=== PATIENT | male | born 1950 | race Caucasian/White ===

== ENCOUNTER 2018-11-15 13:45 | Inpatient (IN) | payer MEDICARE ==
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
--- NOTE | 2018-11-15 14:38 | CT ---
EXAMINATION TYPE: CT brain wo con DATE OF EXAM: 11/15/2018 HISTORY: Dizziness CT DLP: 1096.4 mGycm. Automated Exposure Control for Dose Reduction was Utilized. TECHNIQUE: CT scan of the head is performed without contrast. COMPARISON: None. FINDINGS: There is no acute intracranial hemorrhage or midline shift identified. There is diffuse v entricular and sulcal prominence consistent with diffuse age-related cerebral atrophy. There is low- attenuation in the periventricular white matter consistent with chronic small vessel ischemic change. Old lacunar infarct left internal capsule on axial image 30 is felt present The globes are intact a nd the visualized sinuses are clear. Vascular calcification distal internal carotid arteries is see n. IMPRESSION: No acute intracranial hemorrhage or midline shift. There is moderate diffuse age-relate d cerebral atrophy and mild to moderate chronic small vessel ischemic change with left-sided internal capsule lacunar infarct present..
[2018-11-15] MEDS ORDERED: CEFEPIME 2 GM in SODIUM CHLORIDE 0.9% 100 ML IVPB STA (14:45)
[2018-11-15] MEDS ORDERED: VANCOMYCIN IV PER PHARMACY 1 EACH MISC MISCELLANE PRN (14:45)
--- NOTE | 2018-11-15 14:45 | XR ---
EXAMINATION TYPE: XR chest 2V DATE OF EXAM: 11/15/2018 COMPARISON: NONE HISTORY: Fever and weakness. TECHNIQUE: Frontal and lateral views of the chest are obtained. FINDINGS: There is chronic parenchymal change without suspicious focal air space opacity, pleural ef fusion, or pneumothorax seen. The cardiac silhouette size is mildly enlarged with atherosclerotic ao rta surgical change right shoulder is partially imaged. IMPRESSION: Chronic changes and mild cardiomegaly without suspicious acute infiltrate identified.
[2018-11-15] MEDS ORDERED: VANCOMYCIN 1,500 MG in SODIUM CHLORIDE 0.9% 250 ML IVPB STA (14:48)
[2018-11-15 15:17] LABS: VBG PH 7.47 (7.31-7.41)
[2018-11-15 15:22] LABS: Basophils % (A) 1 %; Eosinophils % (A) 0 %; HCT 28.2 % (39.0-53.0); HGB 8.8 gm/dL (13.0-17.5); Lymphocytes # (A) 0.3 k/uL (1.0-4.8); Lymphocytes % (A) 4 %; MCH 29.7 pg (25.0-35.0); MCHC 31.4 g/dL (31.0-37.0); MCV 94.8 fL (80.0-100.0); Mean Platelet Volume 7.1; Monocytes # (A) 0.3 k/uL (0-1.0); Monocytes % (A) 4 %; Neutrophils # (A) 5.9 k/uL (1.3-7.7); Neutrophils % (A) 90 %; Platelet Count 143 k/uL (150-450); RBC 2.97 m/uL (4.30-5.90); RDW 15.9 % (11.5-15.5); WBC 6.5 k/uL (3.8-10.6)
[2018-11-15 15:24] LABS: INR 1.2 (<1.2); Prothrombin Time 12.2 sec (9.0-12.0)
[2018-11-15 15:26] LABS: Ammonia <9 umol/L (<30); Lactic Acid, Venous 1.2 mmol/L (0.7-2.0)
[2018-11-15 15:27] LABS: Calcium 8.9 mg/dL (8.4-10.2); Magnesium 1.8 mg/dL (1.6-2.3); Potassium 3.9 mmol/L (3.5-5.1)
[2018-11-15 17:22] LABS: Glucose,Whole Blood 169 mg/dL (75-99)
[2018-11-15 20:52] LABS: Glucose,Whole Blood 219 mg/dL (75-99)
[2018-11-15] MEDS: PANTOPRAZOLE 40 MG TABLET PO SCH (21:30)
[2018-11-15] MEDS: CARVEDILOL 12.5 MG TAB PO SCH (22:17)
[2018-11-15] MEDS: hydrALAZINE HCL 50 MG TAB PO SCH (22:17)
--- NOTE | 2018-11-15 22:35 | HP ---
HISTORY AND PHYSICAL CHIEF COMPLAINT: Fever and confusion. HISTORY OF PRESENT ILLNESS: There is no history available from this 68-year-old white male who came to the emergency room. He is confused. He is not known to me and his normal mental status is unknown. There is no one to give a history. In the emergency room, he had a fever with no obvious etiology. The urine has not been obtained. Chest x-ray was unremarkable. REVIEW OF SYSTEMS: Review of systems is unobtainable. Past medical history, family history, personal and social histories, etc. are all unknown. He is not known to be allergic to any medications. Apparently he is on atorvastatin, carvedilol, omeprazole, tamsulosin, amlodipine, and hydralazine. Laboratory studies revealed a low hemoglobin 8.8 with a white count of 6500. His BUN was 26, but creatinine is 5.08, blood sugar is 169. PHYSICAL EXAM: Temperature is 102.3 with pulse 82, respirations 24, blood pressure 164/70. In general, he appeared to be well developed, well nourished, well preserved, slightly dehydrated. He was awake and alert, but confused. He denied any chest or abdominal pain. He was not coughing. Head, ears, eyes, nose, mouth, and throat were normal. Neck veins were not distended. The chest was clear. Cardiac exam demonstrated sinus rhythm with no murmurs or extra sounds. Abdomen is soft and nontender. There are no masses or visceromegaly. Bowel sounds are heard. Extremities are normal and there is no cyanosis. Neurologically he is intact other than being confused. He is admitted to the hospital with diagnoses of: 1. Fever and mental status changes. 2. Probable history of heart disease and high blood pressure. 3. Another diagnosis would be renal failure. PLAN: 1. Bed rest. 2. IV fluids. 3. Appropriate cultures. 4. Consult with Nephrology and Infectious Disease. 5. Workup anemia. 6. Work on discharge planning. MMODL / IJN: [id number] /
[2018-11-16 01:30] LABS: Hemoglobin A1C 7.1 % (4.0-6.0)
[2018-11-16 05:24] LABS: Glucose,Whole Blood 208 mg/dL (75-99)
[2018-11-16] MEDS: CARVEDILOL 12.5 MG TAB PO SCH ×2 (06:53→16:33)
[2018-11-16] MEDS: PANTOPRAZOLE 40 MG TABLET PO SCH ×2 (06:53→16:33)
[2018-11-16] MEDS: INSULIN ASPART (NovoLOG) 100 UNIT/ML VIAL SQ SCH ×4 (06:53→21:45)
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
--- NOTE | 2018-11-16 09:02 | XR ---
EXAMINATION TYPE: XR chest 2V DATE OF EXAM: 11/16/2018 COMPARISON: NONE HISTORY: Shortness of breath TECHNIQUE: Frontal and lateral views of the chest are obtained. FINDINGS: Scattered senescent parenchymal changes noted. Hyperinflation compatible with COPD. Increasing patchy density at the right lower lobe may reflect developing pneumonia. Correlate clinica lly and progress studies are advised. Heart size is stable. Mediastinal structures are stable and grossly unremarkable. No evidence for hilar prominence. Degenerative changes dorsal spine. IMPRESSION: 1. Increasing patchy density at the right lower lobe may reflect developing pneumonia. Correlate clin ically and progress studies are advised.
[2018-11-16] MEDS: amLODIPine 10 MG TAB PO SCH (09:43)
[2018-11-16] MEDS: hydrALAZINE HCL 50 MG TAB PO SCH ×3 (09:43→21:44)
[2018-11-16] MEDS: TAMSULOSIN 0.4 MG CAP.ER.24H PO SCH (09:43)
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
[2018-11-16 11:47] LABS: Glucose,Whole Blood 154 mg/dL (75-99)
[2018-11-16] MEDS ORDERED: VANCOMYCIN 1,500 MG in SODIUM CHLORIDE 0.9% 250 ML IVPB ONE ×4 (12:00)
[2018-11-16 16:48] LABS: Glucose,Whole Blood 216 mg/dL (75-99)
[2018-11-16] MEDS: IOPAMIDOL-300 CONTRAST 30 ML VIAL (ORAL USE) PO PRN ×2 (17:56→18:42)
--- NOTE | 2018-11-16 17:57 | PN ---
PROGRESS NOTE DATE OF SERVICE: 11/16/2018. REASON FOR FOLLOWUP: Fever and Enterococcus bacteremia. INTERVAL HISTORY: The patient is currently afebrile. He seems to be more awake, alert. The patient currently denies having any headache. No chest pain. No shortness of breath. Very minimal cough. No nausea, vomiting. No abdominal pain. Has been complaining of some diarrhea. PHYSICAL EXAMINATION: Blood pressure 120/52 with a pulse of 84. Temperature 97.5. He is 99% on 2 L nasal cannula. General description is an elderly male up in the bed in no distress. Respiratory system: Unlabored breathing with decreased breath sounds at the bases. No wheeze. Heart S1, S2. Regular rate and rhythm. Abdomen soft, no tenderness. LABS: Hemoglobin 8.8, white count 6.5, BUN of 26, creatinine 5.08. Blood culture with Enterococcus. DIAGNOSTIC IMPRESSION AND PLAN: Patient admitted to the hospital with a fever, now with evidence of enterococcal bacteremia which could be either urinary or a gastrointestinal source in this patient who hardly makes any urine because of his underlying dialysis more likely abdominal source. We will obtain a CT of abdomen and pelvis with contrast. Okay with Nephrology. Vancomycin to continue while monitoring his clinical course. We will continue supportive care. MMODL / IJN: [id number] /
--- NOTE | 2018-11-16 21:14 | PN ---
PROGRESS NOTE CHIEF COMPLAINT: Mental status changes and fever. HISTORY OF PRESENT ILLNESS: This gentleman remains confused, but awake and alert. Workup continues. He is not complaining of any chest pain, abdominal pain, nausea, vomiting, etc. His temperature is down. His blood sugars have been elevated. His C-reactive protein is high. He is to be seen by Nephrology. PHYSICAL EXAM: Chest is clear and cardiac exam is normal. Abdomen is soft, nontender. IMPRESSION: 1. Mental status changes. 2. Delirium. 3. ? dementia. 4. Sepsis ? 5. End-stage renal disease. PLAN: Continue to monitor labs and particularly blood sugars. We are waiting his renal evaluation. MMODL / IJN: [id number] /
[2018-11-16 21:35] LABS: Glucose,Whole Blood 181 mg/dL (75-99)
--- NOTE | 2018-11-16 23:20 | CT ---
EXAMINATION TYPE: CT abdomen pelvis w con DATE OF EXAM: 11/16/2018 COMPARISON: None HISTORY: Fever and enterococus bacteremia. CT DLP: 1106.2 mGycm Automated exposure control for dose reduction was used. TECHNIQUE: Helical acquisition of images was performed from the lung bases through the pelvis. CONTRAST: Performed with Oral Contrast and with IV Contrast, patient injected with 80ml mL of Isovue 300. FINDINGS: LUNG BASES: No acute findings, but mild cardiomegaly and prominent coronary calcifications. LIVER/GB: No significant abnormality is appreciated. PANCREAS: No significant abnormality is seen. SPLEEN: No significant abnormality is seen. ADRENALS: No significant abnormality is seen. KIDNEYS: Bilateral 1 to 3 mm nonobstructing renal calcifications are noted. There is no hydronephrosi s or hydroureter. Left-sided renal cysts are seen. FREE AIR: No free air is visualized. RETROPERITONEAL ADENOPATHY: None visualized REPRODUCTIVE ORGANS: No significant abnormality is seen URINARY BLADDER: The urinary bladder is moderately distended and there is circumferential mural thic kening of the bladder. The prostate is prominently enlarged, measuring 7 cm mean diameter. PELVIC ADENOPATHY: None visualized. OSSEOUS STRUCTURES: No significant abnormality is seen. BOWEL: There is sequential mural thickening of the gastric antrum and duodenal bulb, correlate for g astritis/duodenitis. The small bowel is opacified with oral contrast and has normal appearance, as do es the colon. VASCULATURE: No acute findings. OTHER: Soft tissue nodule noted on axial image 40 just deep to the right rectus abdominis. A smaller nodule is noted on axial image 51, just deep to the right rectus abdominis. These 2 findings are like ly subcentimeter short axis lymph nodes. IMPRESSION: 1. Findings suggesting peptic ulcer disease. 2. Prostate hypertrophy with partial bladder outlet configuration. 3. Mild cardiomegaly with prominent coronary calcifications.
[2018-11-17 06:14] LABS: Glucose,Whole Blood 205 mg/dL (75-99)
[2018-11-17] MEDS: CARVEDILOL 12.5 MG TAB PO SCH ×2 (06:47→17:53)
[2018-11-17] MEDS: PANTOPRAZOLE 40 MG TABLET PO SCH ×2 (06:47→17:54)
[2018-11-17] MEDS: INSULIN ASPART (NovoLOG) 100 UNIT/ML VIAL SQ SCH ×4 (06:47→21:19)
[2018-11-17 06:57] LABS: Anisocytosis Slight; HCT 23.7 % (39.0-53.0); HGB 7.8 gm/dL (13.0-17.5); MCH 32.1 pg (25.0-35.0); MCHC 32.8 g/dL (31.0-37.0); MCV 97.9 fL (80.0-100.0); Macrocytosis Slight; Mean Platelet Volume 7.7; Platelet Count 130 k/uL (150-450); RBC 2.42 m/uL (4.30-5.90); RDW 16.5 % (11.5-15.5); WBC 3.6 k/uL (3.8-10.6)
[2018-11-17 07:18] LABS: Calcium 8.1 mg/dL (8.4-10.2)
[2018-11-17 07:24] LABS: Vancomycin,Random 22.2 ug/mL
--- NOTE | 2018-11-17 10:25 | P.PN ---
Subjective Progress Note Date: 11/17/18 Seen and examined for the follow-up of ESRD. Currently ongoing dialysis. Objective - Vital Signs Vital signs: Vital Signs Temp 98 F 11/17/18 04:00 Pulse 64 11/17/18 08:00 Resp 16 11/17/18 08:00 BP 112/51 11/17/18 08:00 Pulse Ox 91 L 11/17/18 08:00 Intake & Output 11/16/18 11/17/18 11/17/18 18:59 06:59 18:59 Intake Total 720 400 Balance 720 400 Weight 86.1 kg Intake: Oral 720 400 Other: Voiding Method Urinal Urinal Urinal Diaper Diaper Diaper # Voids 1 # Bowel Movements 1 - Exam No acute distress. S1-S2 heard Lungs clear Left upper arm aVF - Labs CBC & Chem 7: 11/17/18 05:54 11/17/18 05:54 Labs: Abnormal Lab Results - Last 24 Hours (Table) 11/15/18 11/16/18 11/16/18 Range/Units 14:50 08:41 11:45 WBC (3.8-10.6) k/uL RBC (4.30-5.90) m/uL Hgb (13.0-17.5) gm/dL Hct (39.0-53.0) % RDW (11.5-15.5) % Plt Count (150-450) k/uL Sodium (137-145) mmol/L Chloride (98-107) mmol/L BUN (9-20) mg/dL Creatinine (0.66-1.25) mg/dL Glucose (74-99) mg/dL POC Glucose (mg/dL) 154 H (75-99) mg/dL Calcium (8.4-10.2) mg/dL Procalcitonin 3.65 H (0.02-0.09) ng/mL Hep Bs Antibody Reactive H (Non-Reactive) 11/16/18 11/16/18 11/17/18 Range/Units 16:44 21:33 05:54 WBC (3.8-10.6) k/uL RBC (4.30-5.90) m/uL Hgb (13.0-17.5) gm/dL Hct (39.0-53.0) % RDW (11.5-15.5) % Plt Count (150-450) k/uL Sodium 131 L (137-145) mmol/L Chloride 92 L (98-107) mmol/L BUN 56 H (9-20) mg/dL Creatinine 8.77 H* (0.66-1.25) mg/dL Glucose 199 H (74-99) mg/dL POC Glucose (mg/dL) 216 H 181 H (75-99) mg/dL Calcium 8.1 L (8.4-10.2) mg/dL Procalcitonin (0.02-0.09) ng/mL Hep Bs Antibody (Non-Reactive) 11/17/18 11/17/18 Range/Units 05:54 06:13 WBC 3.6 L (3.8-10.6) k/uL RBC 2.42 L (4.30-5.90) m/uL Hgb 7.8 L (13.0-17.5) gm/dL Hct 23.7 L (39.0-53.0) % RDW 16.5 H (11.5-15.5) % Plt Count 130 L (150-450) k/uL Sodium (137-145) mmol/L Chloride (98-107) mmol/L BUN (9-20) mg/dL Creatinine (0.66-1.25) mg/dL Glucose (74-99) mg/dL POC Glucose (mg/dL) 205 H (75-99) mg/dL Calcium (8.4-10.2) mg/dL Procalcitonin (0.02-0.09) ng/mL Hep Bs Antibody (Non-Reactive) Microbiology - Last 24 Hours (Table) 11/15/18 18:39 Blood Culture - Preliminary Blood No Growth after 24 hours 11/15/18 14:50 Blood Culture Gram Stain - Preliminary Blood Blood Culture - Preliminary Group D Enterococcus Assessment and Plan Assessment: #1 encephalopathy secondary to enterococcus bacteremia #2 ESRD, TTS schedule #3 anemia with ESRD #4 hypertension with ESRD #5 metabolic bone disease with ESRD Plan: #1 hemodialysis today as per outpatient schedule and plan again on Monday. #2 antibiotics as per infectious disease #3 ESRD medications
[2018-11-17 12:00] LABS: Glucose,Whole Blood 201 mg/dL (75-99)
[2018-11-17] MEDS: amLODIPine 10 MG TAB PO SCH (12:19)
[2018-11-17] MEDS: hydrALAZINE HCL 50 MG TAB PO SCH ×3 (12:19→21:18)
[2018-11-17] MEDS: TAMSULOSIN 0.4 MG CAP.ER.24H PO SCH (12:20)
[2018-11-17 12:59] LABS: Eosinophils # (M) 0.25 k/uL (0-0.7); Lymphocytes # (M) 0.43 k/uL (1.0-4.8); Monocytes # (M) 0.32 k/uL (0-1.0); Neutrophils % (M) 72 %; Nucleated Red Blood Cells 0 /100 WBC (0-0); Total Cells Counted 100
--- NOTE | 2018-11-17 13:46 | PN ---
PROGRESS NOTE CHIEF COMPLAINT: Fever and sepsis. HISTORY OF PRESENT ILLNESS: This gentleman is being dialyzed. He has grown out enterococcus on a blood culture. REVIEW OF SYSTEMS: Review of systems is unobtainable at this time. PHYSICAL EXAMINATION: His hydration is slightly improved. Chest is clear. Cardiac exam is normal. Abdomen is soft, nontender. IMPRESSION: 1. Septicemia. 2. End-stage renal disease. PLAN: Continue with dialysis as well as antibiotic management. It is not clear where he will go after his hospitalization. MMODL / IJN: [id number] /
[2018-11-17 17:17] LABS: Glucose,Whole Blood 226 mg/dL (75-99)
[2018-11-17 20:55] LABS: Glucose,Whole Blood 195 mg/dL (75-99)
[2018-11-18 06:29] LABS: Glucose,Whole Blood 269 mg/dL (75-99)
[2018-11-18 06:45] LABS: Calcium 8.1 mg/dL (8.4-10.2)
[2018-11-18 06:50] LABS: Anisocytosis Slight; Basophils % (A) 1 %; Eosinophils # (A) 0.2 k/uL (0-0.7); Eosinophils % (A) 5 %; HCT 24.6 % (39.0-53.0); HGB 8.1 gm/dL (13.0-17.5); Lymphocytes # (A) 0.4 k/uL (1.0-4.8); Lymphocytes % (A) 9 %; MCV 96.9 fL (80.0-100.0); Macrocytosis Slight; Mean Platelet Volume 7.9; Monocytes # (A) 0.3 k/uL (0-1.0); Monocytes % (A) 8 %; Neutrophils # (A) 2.8 k/uL (1.3-7.7); Neutrophils % (A) 74 %; Platelet Count 137 k/uL (150-450); RBC 2.54 m/uL (4.30-5.90); RDW 16.7 % (11.5-15.5); Vancomycin,Random 17.6 ug/mL; WBC 3.9 k/uL (3.8-10.6)
[2018-11-18] MEDS: CARVEDILOL 12.5 MG TAB PO SCH ×2 (06:54→16:36)
[2018-11-18] MEDS: PANTOPRAZOLE 40 MG TABLET PO SCH ×2 (06:54→16:36)
[2018-11-18] MEDS: INSULIN ASPART (NovoLOG) 100 UNIT/ML VIAL SQ SCH ×4 (06:57→21:22)
[2018-11-18] MEDS: hydrALAZINE HCL 50 MG TAB PO SCH ×3 (08:24→21:22)
[2018-11-18] MEDS: TAMSULOSIN 0.4 MG CAP.ER.24H PO SCH (08:24)
[2018-11-18] MEDS: amLODIPine 10 MG TAB PO SCH (08:24)
--- NOTE | 2018-11-18 10:36 | P.PN ---
Subjective Progress Note Date: 11/18/18 Seen and examined for the follow-up of ESRD. Feels better today. No nausea vomiting diarrhea. Objective - Vital Signs Vital signs: Vital Signs Temp 97.6 F 11/18/18 08:00 Pulse 63 11/18/18 08:00 Resp 16 11/18/18 08:00 BP 124/80 11/18/18 08:00 Pulse Ox 98 11/18/18 08:00 Intake & Output 11/17/18 11/18/18 11/18/18 18:59 06:59 18:59 Intake Total 1220 400 480 Output Total 2400 Balance -1180 400 480 Weight 86.4 kg Intake: Oral 920 400 480 Hemodialysis 300 Output: Urine 100 Hemodialysis 2300 Other: Voiding Method Urinal Urinal Diaper Diaper # Voids 2 2 # Bowel Movements 1 - Exam No acute distress. S1-S2 heard Lungs clear Left upper arm aVF - Labs CBC & Chem 7: 11/18/18 05:55 11/18/18 05:55 Labs: Abnormal Lab Results - Last 24 Hours (Table) 11/17/18 11/17/18 11/17/18 Range/Units 05:54 11:58 16:47 RBC (4.30-5.90) m/uL Hgb (13.0-17.5) gm/dL Hct (39.0-53.0) % RDW (11.5-15.5) % Plt Count (150-450) k/uL Lymphocytes # (1.0-4.8) k/uL Lymphocytes # (Manual) 0.43 L (1.0-4.8) k/uL Sodium (137-145) mmol/L Chloride (98-107) mmol/L BUN (9-20) mg/dL Creatinine (0.66-1.25) mg/dL Glucose (74-99) mg/dL POC Glucose (mg/dL) 201 H 226 H (75-99) mg/dL Calcium (8.4-10.2) mg/dL 11/17/18 11/18/18 11/18/18 Range/Units 20:53 05:55 05:55 RBC 2.54 L (4.30-5.90) m/uL Hgb 8.1 L (13.0-17.5) gm/dL Hct 24.6 L (39.0-53.0) % RDW 16.7 H (11.5-15.5) % Plt Count 137 L (150-450) k/uL Lymphocytes # 0.4 L (1.0-4.8) k/uL Lymphocytes # (Manual) (1.0-4.8) k/uL Sodium 134 L (137-145) mmol/L Chloride 95 L (98-107) mmol/L BUN 43 H (9-20) mg/dL Creatinine 6.50 H (0.66-1.25) mg/dL Glucose 239 H (74-99) mg/dL POC Glucose (mg/dL) 195 H (75-99) mg/dL Calcium 8.1 L (8.4-10.2) mg/dL 11/18/18 Range/Units 06:27 RBC (4.30-5.90) m/uL Hgb (13.0-17.5) gm/dL Hct (39.0-53.0) % RDW (11.5-15.5) % Plt Count (150-450) k/uL Lymphocytes # (1.0-4.8) k/uL Lymphocytes # (Manual) (1.0-4.8) k/uL Sodium (137-145) mmol/L Chloride (98-107) mmol/L BUN (9-20) mg/dL Creatinine (0.66-1.25) mg/dL Glucose (74-99) mg/dL POC Glucose (mg/dL) 269 H (75-99) mg/dL Calcium (8.4-10.2) mg/dL Microbiology - Last 24 Hours (Table) 11/15/18 14:50 Blood Culture Gram Stain - Final Blood Blood Culture - Final Enterococcus faecalis 11/15/18 18:39 Blood Culture - Preliminary Blood No Growth after 48 hours 11/16/18 08:41 Blood Culture - Preliminary Blood No Growth after 24 hours Assessment and Plan Assessment: #1 encephalopathy secondary to enterococcus bacteremia #2 ESRD, TTS schedule #3 anemia with ESRD #4 hypertension with ESRD #5 metabolic bone disease with ESRD Plan: #1 hemodialysis today as per outpatient schedule and plan again on Monday. #2 antibiotics as per infectious disease #3 ESRD medications
[2018-11-18] MEDS ORDERED: DARBEPOETIN ALFA 40 MCG/0.4 ML SYRINGE SQ SCH (10:45)
[2018-11-18 11:46] LABS: Glucose,Whole Blood 241 mg/dL (75-99)
[2018-11-18] MEDS ORDERED: VANCOMYCIN 1,500 MG in SODIUM CHLORIDE 0.9% 250 ML IVPB ONE (12:00)
[2018-11-18] MEDS: SEVELAMER 800 MG TAB PO SCH ×2 (12:36→16:36)
[2018-11-18] MEDS: FOLIC ACID-VIT B COMPLEX-VIT C 1 CAP PO SCH (12:36)
--- NOTE | 2018-11-18 13:21 | PN ---
PROGRESS NOTE DATE OF SERVICE: 11/17/2018. REASON FOR FOLLOWUP: Enterococcus bacteremia. INTERVAL HISTORY: The patient is currently afebrile. Patient is breathing comfortably. The patient denies having any chest pain or any cough. No abdominal pain. No diarrhea. He is a dialysis patient, still makes a bit of urine. Denies any urinary symptoms. PHYSICAL EXAMINATION: Blood pressure is 121/62 with a pulse of 65, temperature 97.8. He is 93% on room air. General description is an elderly male lying in bed in no distress. RESPIRATORY SYSTEM: Unlabored breathing. Clear to auscultation. HEART: S1, S2. Regular rate and rhythm. ABDOMEN: Soft, no tenderness. EXTREMITIES: No edema of the feet. LABS: Hemoglobin is 7.2, white count 3.3, BUN of 56, creatinine is 8.77. Blood culture with Enterococcus faecalis. Blood culture repeat has been negative so far. DIAGNOSTIC IMPRESSION AND PLAN: Patient with Enterococcus faecalis bacteremia, source possibly urinary. The CT abdomen is negative for inflammatory changes. Blood culture repeat has been negative making it to be less likely source. Will continue with vancomycin while waiting for the sensitivity to finalize. Continue supportive care. MMODL / IJN: [id number] /
[2018-11-18 16:54] LABS: Glucose,Whole Blood 177 mg/dL (75-99)
--- NOTE | 2018-11-18 19:18 | PN ---
PROGRESS NOTE CHIEF COMPLAINT: Sepsis, end-stage renal disease and confusion. HISTORY OF PRESENT ILLNESS: This gentleman is doing better. He is more awake and oriented. He is complaining of a problem on his back. PHYSICAL EXAM: Chest is clear. The cardiac exam is normal. Abdomen is soft, nontender. On his back he has an infected sebaceous cyst, but it looks like it is receding. IMPRESSION: 1. End-stage renal disease. 2. Urinary tract infection. 3. Infected sebaceous cyst on the back. 4. Delirium. 5. Dementia. PLAN: He continues to improve. His sebaceous cyst will be left alone unless it becomes worse. MMODL / IJN: [id number] /
[2018-11-18 21:12] LABS: Glucose,Whole Blood 244 mg/dL (75-99)
--- NOTE | 2018-11-18 22:17 | PN ---
PROGRESS NOTE DATE OF SERVICE: 11/18/2018 REASON FOR FOLLOWUP: Enterococcus faecalis bacteremia, possibly ____ source. INTERVAL HISTORY: The patient is currently afebrile. Patient has been breathing comfortably. Denies having any chest pain. No shortness of breath or cough. No abdominal pain or any diarrhea. PHYSICAL EXAMINATION: Blood pressure 142/87 with a pulse of 69, temperature of 98, he is 95% on room air. GENERAL DESCRIPTION: An elderly male up in the bed in no distress. RESPIRATORY SYSTEM: Unlabored breathing. Decreased breath sounds at the base. HEART: S1, S2. Regular rate and rhythm. ABDOMEN: Soft, no tenderness. BACK: Evidence of sebaceous cyst but no abscess or cellulitis. LABS: Hemoglobin 8.1, white count 3.8. BUN of 43, creatinine 0.50. Blood culture repeat 11/15 and 11/16 have been negative. DIAGNOSTIC IMPRESSION AND PLAN: Patient with enterococcus faecalis bacteremia, possible urinary source as no evidence of any abnormality on the CT of abdomen and pelvis. Patient is currently covered with vancomycin, Pharmacy to dose which can be done through dialysis to finish 2-week course of therapy. The patient did have evidence of a sebaceous cyst on the back with no evidence of any abscess. May benefit from a surgical extraction of the same. Continue supportive care. MMODL / IJN: [id number] /
[2018-11-19 06:29] LABS: Glucose,Whole Blood 194 mg/dL (75-99)
[2018-11-19] MEDS: CARVEDILOL 12.5 MG TAB PO SCH ×2 (06:34→17:07)
[2018-11-19] MEDS: SEVELAMER 800 MG TAB PO SCH ×3 (06:34→17:07)
[2018-11-19] MEDS: PANTOPRAZOLE 40 MG TABLET PO SCH ×2 (06:34→17:08)
[2018-11-19] MEDS: INSULIN ASPART (NovoLOG) 100 UNIT/ML VIAL SQ SCH ×4 (06:34→21:12)
[2018-11-19 07:54] LABS: Anisocytosis Slight; Basophils % (A) 0 %; Eosinophils # (A) 0.2 k/uL (0-0.7); Eosinophils % (A) 4 %; HCT 26.4 % (39.0-53.0); HGB 8.5 gm/dL (13.0-17.5); Hypochromasia Slight; Lymphocytes # (A) 0.4 k/uL (1.0-4.8); Lymphocytes % (A) 9 %; MCH 31.9 pg (25.0-35.0); MCHC 32.2 g/dL (31.0-37.0); MCV 98.9 fL (80.0-100.0); Macrocytosis Slight; Mean Platelet Volume 7.7; Monocytes # (A) 0.2 k/uL (0-1.0); Monocytes % (A) 5 %; Neutrophils % (A) 80 %; Platelet Count 167 k/uL (150-450); RBC 2.67 m/uL (4.30-5.90); RDW 16.8 % (11.5-15.5)
[2018-11-19 08:14] LABS: Calcium 8.5 mg/dL (8.4-10.2); Potassium 4.3 mmol/L (3.5-5.1)
[2018-11-19] MEDS: FOLIC ACID-VIT B COMPLEX-VIT C 1 CAP PO SCH (08:35)
[2018-11-19] MEDS: amLODIPine 10 MG TAB PO SCH (08:35)
[2018-11-19] MEDS: hydrALAZINE HCL 50 MG TAB PO SCH ×3 (08:35→21:11)
[2018-11-19] MEDS: TAMSULOSIN 0.4 MG CAP.ER.24H PO SCH (08:35)
--- NOTE | 2018-11-19 10:03 | P.PN ---
Subjective Patient is seen in follow-up for end-stage renal disease. He is maintained on hemodialysis on a Monday schedule. Currently being treated for enterococcus bacteremia. No chest pain or shortness of breath. Tolerated hemodialysis well on Monday. Vital signs are stable. General: The patient appeared well nourished and normally developed. HEENT: Head exam is unremarkable. Neck is without jugular venous distension. LUNGS: Lungs are clear to auscultation and percussion. Breath sounds decreased. HEART: Rate and Rhythm are regular. First and second heart sounds normal. No murmurs, rubs or gallops. ABDOMEN: Abdominal exam reveals normal bowel sounds. Non-tender and non- distended. No evidence of peritonitis. EXTREMITITES: No clubbing, cyanosis, or edema. Objective - Vital Signs Vital signs: Vital Signs Temp 98.2 F 11/18/18 20:00 Pulse 65 11/19/18 04:00 Resp 17 11/19/18 04:00 BP 170/73 11/19/18 04:00 Pulse Ox 95 11/19/18 04:00 Intake & Output 11/18/18 11/19/18 11/19/18 18:59 06:59 18:59 Intake Total 1080 800 Balance 1080 800 Weight 87.77 kg Intake: Oral 1080 800 Other: Voiding Method Urinal Urinal Diaper Diaper # Voids 2 2 - Labs CBC & Chem 7: 11/19/18 07:16 11/19/18 07:16 Labs: Abnormal Lab Results - Last 24 Hours (Table) 11/18/18 11/18/18 11/18/18 Range/Units 11:43 16:46 21:11 RBC (4.30-5.90) m/uL Hgb (13.0-17.5) gm/dL Hct (39.0-53.0) % RDW (11.5-15.5) % Lymphocytes # (1.0-4.8) k/uL Sodium (137-145) mmol/L Chloride (98-107) mmol/L BUN (9-20) mg/dL Creatinine (0.66-1.25) mg/dL Glucose (74-99) mg/dL POC Glucose (mg/dL) 241 H 177 H 244 H (75-99) mg/dL 11/19/18 11/19/18 11/19/18 Range/Units 06:28 07:16 07:16 RBC 2.67 L (4.30-5.90) m/uL Hgb 8.5 L (13.0-17.5) gm/dL Hct 26.4 L (39.0-53.0) % RDW 16.8 H (11.5-15.5) % Lymphocytes # 0.4 L (1.0-4.8) k/uL Sodium 134 L (137-145) mmol/L Chloride 95 L (98-107) mmol/L BUN 54 H (9-20) mg/dL Creatinine 8.18 H* (0.66-1.25) mg/dL Glucose 170 H (74-99) mg/dL POC Glucose (mg/dL) 194 H (75-99) mg/dL Microbiology - Last 24 Hours (Table) 11/15/18 18:39 Blood Culture - Preliminary Blood No Growth after 72 hours 11/16/18 08:41 Blood Culture - Preliminary Blood No Growth after 48 hours Assessment and Plan Plan: Assessment: 1. End-stage renal disease maintained on hemodialysis on a Monday schedule via left upper extremity AV fistula. 2. Enterococcus bacteremia maintained on IV vancomycin. 3. Anemia of chronic kidney disease maintained on Aranesp. 4. Hypertension with chronic kidney disease. Stable. 5. Chronic kidney disease mineral bone disease maintained on Renvela. Plan: Hemodialysis tomorrow. Monitor vancomycin levels. Target level less than 20. Increase hydralazine to 100 mg 3 times daily.
[2018-11-19 11:56] LABS: Glucose,Whole Blood 260 mg/dL (75-99)
[2018-11-19 16:58] LABS: Glucose,Whole Blood 230 mg/dL (75-99)
--- NOTE | 2018-11-19 18:32 | PN ---
PROGRESS NOTE DATE OF SERVICE: 11/19/2018. REASON FOR FOLLOWUP: Enterococcus faecalis bacteremia. INTERVAL HISTORY: The patient is currently afebrile. The patient has been breathing comfortably. The patient denies having any chest pain or any cough. No nausea, vomiting, abdominal pain, or any diarrhea. PHYSICAL EXAMINATION: Blood pressure 139/66, pulse of 64. Temperature 97.6. He is 96% on room air. General description is an elderly male, up in the bed in no distress. Respiratory system: Unlabored breathing, clear to auscultation anteriorly. Heart S1, S2. Regular rate and rhythm. No loud murmur. ABDOMEN: Soft, no tenderness. Extremities: No edema of the feet. LABS: Hemoglobin 8.5, white count 5.0, BUN of 54, creatinine 8.18. Blood culture, repeat - 11/15 has been negative. DIAGNOSTIC IMPRESSION AND PLAN: Patient with Enterococcus faecalis bacteremia with followup blood cultures became negative very quickly, clinically doubt source. The patient does have a fistula for dialysis with no signs of any inflammation, possible urinary source. The patient is currently ordered vancomycin pharmacy to dose, can be done through dialysis for another 10 days to finish 2 weeks of therapy with close outpatient followup. Continue supportive care. MMODL / IJN: [id number] /
--- NOTE | 2018-11-19 19:02 | PN ---
PROGRESS NOTE CHIEF COMPLAINT: Sepsis, renal failure. HISTORY OF PRESENT ILLNESS: This gentleman is doing very well. He is much more awake and alert and oriented then he was prior to his dialysis. He has an abscess on the back which has been bothering him and he will have this looked at by Surgery. Review of systems is otherwise good. He is not having any nausea, shortness of breath, etc. PHYSICAL EXAM: Chest is clear. He does have an infected sebaceous cyst in the right posterior chest. Cardiac exam is normal. Abdomen is soft, nontender. IMPRESSION: 1. Sepsis. 2. End-stage renal disease. 3. Infected sebaceous cyst on the back. PLAN: 1. Continue with current program and management. 2. Consult with Surgery for the abscess. MMODL / IJN: [id number] /
[2018-11-19 20:52] LABS: Glucose,Whole Blood 275 mg/dL (75-99)
[2018-11-20] MEDS ORDERED: VANCOMYCIN 1,500 MG in SODIUM CHLORIDE 0.9% 250 ML IVPB ONE (06:00)
[2018-11-20 06:05] LABS: Glucose,Whole Blood 213 mg/dL (75-99)
[2018-11-20] MEDS: SEVELAMER 800 MG TAB PO SCH ×3 (06:30→17:33)
[2018-11-20] MEDS: CARVEDILOL 12.5 MG TAB PO SCH ×2 (06:30→17:33)
[2018-11-20] MEDS: PANTOPRAZOLE 40 MG TABLET PO SCH ×2 (06:30→17:33)
[2018-11-20] MEDS: INSULIN ASPART (NovoLOG) 100 UNIT/ML VIAL SQ SCH ×3 (06:31→17:34)
[2018-11-20 07:41] LABS: Calcium 8.4 mg/dL (8.4-10.2); Potassium 4.4 mmol/L (3.5-5.1)
[2018-11-20 07:44] LABS: Anisocytosis Slight; Basophils % (A) 1 %; Eosinophils # (A) 0.2 k/uL (0-0.7); Eosinophils % (A) 4 %; HCT 23.8 % (39.0-53.0); HGB 7.8 gm/dL (13.0-17.5); Lymphocytes # (A) 0.4 k/uL (1.0-4.8); Lymphocytes % (A) 8 %; MCH 31.7 pg (25.0-35.0); MCHC 32.6 g/dL (31.0-37.0); MCV 97.2 fL (80.0-100.0); Macrocytosis Slight; Mean Platelet Volume 7.5; Monocytes # (A) 0.3 k/uL (0-1.0); Monocytes % (A) 5 %; Neutrophils # (A) 4.3 k/uL (1.3-7.7); Neutrophils % (A) 82 %; Platelet Count 160 k/uL (150-450); RBC 2.45 m/uL (4.30-5.90); RDW 16.7 % (11.5-15.5); WBC 5.3 k/uL (3.8-10.6)
[2018-11-20 07:46] LABS: Vancomycin,Random 14.5 ug/mL
[2018-11-20 07:49] VITALS: TEMP 97.7
[2018-11-20] MEDS: hydrALAZINE HCL 50 MG TAB PO SCH ×2 (11:02→17:34)
[2018-11-20] MEDS: amLODIPine 10 MG TAB PO SCH (11:03)
[2018-11-20] MEDS: TAMSULOSIN 0.4 MG CAP.ER.24H PO SCH (11:03)
[2018-11-20] MEDS: FOLIC ACID-VIT B COMPLEX-VIT C 1 CAP PO SCH (11:03)
--- NOTE | 2018-11-20 11:25 | P.PN ---
Subjective Patient is seen in follow-up for end-stage renal disease. He is maintained on hemodialysis on a Monday schedule. Currently being treated for enterococcus bacteremia. No chest pain or shortness of breath. Tolerated hemodialysis well this morning. Eager to go home. Vital signs are stable. General: The patient appeared well nourished and normally developed. HEENT: Head exam is unremarkable. Neck is without jugular venous distension. LUNGS: Lungs are clear to auscultation and percussion. Breath sounds decreased. HEART: Rate and Rhythm are regular. First and second heart sounds normal. No murmurs, rubs or gallops. ABDOMEN: Abdominal exam reveals normal bowel sounds. Non-tender and non- distended. No evidence of peritonitis. EXTREMITITES: No clubbing, cyanosis, or edema. Objective - Vital Signs Vital signs: Vital Signs Temp 97.7 F 11/20/18 11:17 Pulse 67 11/20/18 11:17 Resp 18 11/20/18 11:17 BP 136/80 11/20/18 11:17 Pulse Ox 96 11/20/18 07:48 Intake & Output 11/19/18 11/20/18 11/20/18 18:59 06:59 18:59 Intake Total 1320 700 360 Output Total 2100 Balance 1320 700 -1740 Weight 90.3 kg Intake: Oral 1320 700 360 Output: Hemodialysis 2100 Other: Voiding Method Urinal Urinal Urinal Diaper Diaper Diaper # Voids 2 - Labs CBC & Chem 7: 11/20/18 06:45 11/20/18 06:45 Labs: Abnormal Lab Results - Last 24 Hours (Table) 11/19/18 11/19/18 11/19/18 Range/Units 11:55 16:55 20:49 RBC (4.30-5.90) m/uL Hgb (13.0-17.5) gm/dL Hct (39.0-53.0) % RDW (11.5-15.5) % Lymphocytes # (1.0-4.8) k/uL Sodium (137-145) mmol/L Chloride (98-107) mmol/L BUN (9-20) mg/dL Creatinine (0.66-1.25) mg/dL Glucose (74-99) mg/dL POC Glucose (mg/dL) 260 H 230 H 275 H (75-99) mg/dL 11/20/18 11/20/18 11/20/18 Range/Units 06:04 06:45 06:45 RBC 2.45 L (4.30-5.90) m/uL Hgb 7.8 L (13.0-17.5) gm/dL Hct 23.8 L (39.0-53.0) % RDW 16.7 H (11.5-15.5) % Lymphocytes # 0.4 L (1.0-4.8) k/uL Sodium 131 L (137-145) mmol/L Chloride 94 L (98-107) mmol/L BUN 66 H (9-20) mg/dL Creatinine 9.18 H* (0.66-1.25) mg/dL Glucose 173 H (74-99) mg/dL POC Glucose (mg/dL) 213 H (75-99) mg/dL Microbiology - Last 24 Hours (Table) 11/16/18 08:41 Blood Culture - Preliminary Blood No Growth after 96 hours 11/15/18 18:39 Blood Culture - Preliminary Blood No Growth after 96 hours Assessment and Plan Plan: Assessment: 1. End-stage renal disease maintained on hemodialysis on a Monday schedule via left upper extremity AV fistula. 2. Enterococcus bacteremia maintained on IV vancomycin. 3. Anemia of chronic kidney disease maintained on Aranesp. 4. Hypertension with chronic kidney disease. Stable. 5. Chronic kidney disease mineral bone disease maintained on Renvela. Plan: Hemodialysis on . Monitor vancomycin levels. Target level less than 20. Maintain current antihypertensives. Stable to be discharged home from nephrology standpoint.
[2018-11-20 12:09] LABS: Glucose,Whole Blood 191 mg/dL (75-99)
--- NOTE | 2018-11-20 13:24 | PN ---
PROGRESS NOTE DATE OF SERVICE: 11/20/2018 REASON FOR FOLLOWUP: Enterococcus faecalis bacteremia. INTERVAL HISTORY: The patient is currently afebrile. The patient has been breathing comfortably. Undergoing hemodialysis. The patient still on going home. No chest pain, shortness of breath or cough. No nausea, vomiting. No abdominal pain. No diarrhea. PHYSICAL EXAMINATION: On examination, blood pressure 136/80 with a pulse of 67, temperature 97.7. He is 96% on room air. General description is an elderly male up in the bed in no distress. RESPIRATORY SYSTEM: Unlabored breathing with decreased breath sounds at the bases. HEART: S1, S2. Regular rate and rhythm. murmur. ABDOMEN: Soft, no tenderness. EXTREMITIES: No edema of feet. LABS: Hemoglobin 7.8, white count 5.3, BUN of 66 with 9.18. Blood culture repeat negative. DIAGNOSTIC IMPRESSION AND PLAN: Patient with Enterococcus faecalis bacteremia, possible urinary or abdominal source. The patient did not have any evidence of persistent bacteremia to report source and the patient does have a graft on the left arm currently with no evidence of any cellulitis. The patient with murmur. Plan at this time to continue with the vancomycin, pharmacy to dose through the dialysis for another 10 days to finish 2-week course of therapy. Recommend repeat blood cultures to be has completed his IV antibiotics to make sure bacteremia. Continue with supportive care. LA / CONNIEN: [id number] /
[2018-11-20 16:18] VITALS: BP 168/78; PULSE 69; RESP 16
[2018-11-20 17:01] LABS: Glucose,Whole Blood 264 mg/dL (75-99)
--- NOTE | 2018-11-20 23:23 | DS ---
DISCHARGE SUMMARY CHIEF COMPLAINT: Sepsis, fever, urinary tract infection and end-stage renal disease. HISTORY OF PRESENT ILLNESS AND PHYSICAL EXAMINATION: Details of this man's history and physical can be found in the initial workup. LABORATORY STUDIES: While he was in the hospital he had laboratory studies, details of which can be found in the laboratory section of his chart. COURSE IN THE HOSPITAL: After admission he was placed on bedrest and started on intravenous fluids. He was seen by Nephrology and was started on dialysis. After that, he began to clinically improve. Antibiotics were also instituted for his urinary tract infection. He was doing well it was felt that he could be discharged on November 20. He will go home on light activity about the house and he will be seen in the office in several days. He will continue his dialysis as an outpatient. FINAL DIAGNOSES: 1. Urinary tract infection. 2. Septicemia. 3. Subcutaneous abscess on the back. 4. Mild dementia. 5. End-stage renal disease, on dialysis. OPERATIONS: None. CONSULTATION: Nephrology. He will be followed with home care and come into the office in the next day or two while he continues on dialysis. MMODL / IJN: [id number] /
== END 2018-11-20 19:30 | disposition home or self-care (01) | DRG 871 ==
LOC: EC 13:45 → 3SCARD 15:47
PROVIDERS: ADMIT Family Medicine; ATTEND Family Medicine
PROC: 5A1D70Z Performance of Urinary Filtration, Intermittent, Less than 6 Hours Per Day (ICD-10-PCS; principal; 2018-11-17)
DX: A41.81 Sepsis due to Enterococcus (principal); N18.6 End stage renal disease; G93.41 Metabolic encephalopathy; N39.0 Urinary tract infection, site not specified; I12.0 Hypertensive chronic kidney disease with stage 5 chronic kidney disease or end stage renal disease; N17.9 Acute kidney failure, unspecified; F03.90 Unspecified dementia, unspecified severity, without behavioral disturbance, psychotic disturbance, mood disturbance, and anxiety; L72.3 Sebaceous cyst; E11.22 Type 2 diabetes mellitus with diabetic chronic kidney disease; R65.20 Severe sepsis without septic shock; E88.89 Other specified metabolic disorders; D63.1 Anemia in chronic kidney disease; Z99.2 Dependence on renal dialysis; I25.2 Old myocardial infarction; Z79.899 Other long term (current) drug therapy; Z87.891 Personal history of nicotine dependence
CPT/HCPCS: 36415; 70450; 71046; 74177; 80048; 80202; 82140; 82803; 83036; 83605; 83735; 83880; 84145; 84484; 85025; 85379; 85610; 86140; 86706; 87040; 87077; 87186; 87340; 90935; 93005; 96365; 99285

== ENCOUNTER 2019-04-12 05:37 | Inpatient (IN) | payer MEDICARE ==
--- NOTE | 2019-04-12 06:08 | ED ---
Altered Mental Status HPI - General Chief Complaint: Altered Mental Status Stated Complaint: Altered Mental Time Seen by Provider: 04/12/19 05:50 Source: patient, EMS, RN notes reviewed Mode of arrival: EMS Limitations: no limitations - History of Present Illness Initial Comments: this is a 69-year-old male presents emergency department via EMS from home. Reportedly patient was not acting per his usual self per family. Patient himself has no complaints at this time. Patient states he is on his way to dialysis which he states he felt a little dizzy states that he did not feel safe driving site returned home. Patient denies chest pain, shortness breath, headache, blurred vision, focal weakness. Patient goes to dialysis on Monday and Monday, he states his renal failure from diabetes. He does admit that he makes a small amount urine. Patient admits that he had a fall on Monday which he hit his head on a curb, he was seen at [facility] had a CAT scan at that time. Patient denies any leg swelling, fever, chills, URI symptoms. - Related Data Home Medications Medication Instructions Recorded Confirmed Atorvastatin [Lipitor] 40 mg PO HS 11/15/18 11/15/18 Carvedilol 25 mg PO BID 11/15/18 11/15/18 Omeprazole 20 mg PO DAILY 11/15/18 11/17/18 Tamsulosin HCl [Flomax] 0.4 mg PO DAILY 11/15/18 11/15/18 amLODIPine [Norvasc] 10 mg PO DAILY 11/15/18 11/15/18 hydrALAZINE HCL 50 mg PO TID 11/15/18 11/15/18 Previous Rx's Medication Instructions Recorded Darbepoetin Zac [Aranesp] 40 mcg SQ Q7D #1 vial 11/20/18 Folic Acid-Vit B Complex-Vit C 1 each PO DAILY #30 cap 11/20/18 [Nephrocaps] Sevelamer [Renvela] 800 mg PO TID-W/MEALS #90 tab 11/20/18 Allergies Allergy/AdvReac Type Severity Reaction Status Date / Time No Known Allergies Allergy Verified 04/12/19 05:52 Review of Systems ROS Statement: Those systems with pertinent positive or pertinent negative responses have been documented in the HPI. ROS Other: All systems not noted in ROS Statement are negative. Past Medical History Past Medical History: Diabetes Mellitus, Hypertension, Memory Impairment, Myocardial Infarction (MS), Renal Disease Additional Past Medical History / Comment(s): PRINCE weinstein historian Last Myocardial Infarction Date:: unknown History of Any Multi-Drug Resistant Organisms: None Reported Additional Past Surgical History / Comment(s): PRINCE weinstein historian Smoking Status: Former smoker Past Alcohol Use History: Occasional Past Drug Use History: None Reported General Exam General appearance: alert, in no apparent distress Head exam: Present: atraumatic, normocephalic, normal inspection Eye exam: Present: normal appearance, PERRL, EOMI. Absent: scleral icterus, conjunctival injection, periorbital swelling ENT exam: Present: normal exam, normal oropharynx, mucous membranes moist, TM's normal bilaterally Neck exam: Present: normal inspection, full ROM. Absent: tenderness, m eningismus, lymphadenopathy Respiratory exam: Present: normal lung sounds bilaterally. Absent: respiratory distress, wheezes, rales, rhonchi, stridor Cardiovascular Exam: Present: regular rate, normal rhythm, normal heart sounds. Absent: systolic murmur, diastolic murmur, rubs, gallop, clicks GI/Abdominal exam: Present: soft, normal bowel sounds. Absent: distended, tenderness, guarding, rebound, rigid Neurological exam: Present: alert, oriented X3, CN II-XII intact, reflexes normal. Absent: motor sensory deficit Skin exam: Present: warm, dry, intact, normal color. Absent: rash Course Vital Signs 04/12/19 04/12/19 05:47 08:18 Temperature 97.1 F L Pulse Rate 77 70 Respiratory 18 18 Rate Blood Pressure 197/93 171/82 O2 Sat by Pulse 97 95 Oximetry Medical Decision Making - Medical Decision Making I did give further information from family and records from [facility]. Patient has new diagnosis of seizures. Family states that he never left his house this morning that they found him in his car confused. Family states that he's been having these bouts of confusion and which he has ended up in other areas including [place]. They're concerned about him driving. Family does concerned about his intermittent confusion. Patient also missed dialysis today and will need dialysis. Case discussed with some physician who accepts admi ssion consult to nephrology and neurology - Lab Data Result diagrams: 04/12/19 06:50 04/12/19 06:50 Lab Results 04/12/19 04/12/19 Range/Units 06:50 06:50 WBC 6.1 (3.8-10.6) k/uL RBC 3.22 L (4.30-5.90) m/uL Hgb 11.0 L (13.0-17.5) gm/dL Hct 31.3 L (39.0-53.0) % MCV 97.3 (80.0-100.0) fL MCH 34.2 (25.0-35.0) pg MCHC 35.1 (31.0-37.0) g/dL RDW 15.0 (11.5-15.5) % Plt Count 168 (150-450) k/uL Neutrophils % 78 % Lymphocytes % 8 % Monocytes % 8 % Eosinophils % 4 % Basophils % 1 % Neutrophils # 4.7 (1.3-7.7) k/uL Lymphocytes # 0.5 L (1.0-4.8) k/uL Monocytes # 0.5 (0-1.0) k/uL Eosinophils # 0.2 (0-0.7) k/uL Basophils # 0.1 (0-0.2) k/uL Sodium 136 L (137-145) mmol/L Potassium 5.6 H (3.5-5.1) mmol/L Chloride 90 L (98-107) mmol/L Carbon Dioxide 31 H (22-30) mmol/L Anion Gap 15 mmol/L BUN 73 H (9-20) mg/dL Creatinine 10.63 H* (0.66-1.25) mg/dL Est GFR (CKD-EPI)AfAm 5 (>60 ml/min/1.73 sqM) Est GFR (CKD-EPI)NonAf 4 (>60 ml/min/1.73 sqM) Glucose 156 H (74-99) mg/dL Calcium 8.8 (8.4-10.2) mg/dL Total Bilirubin 1.1 (0.2-1.3) mg/dL AST 26 (17-59) U/L ALT 12 (4-49) U/L Alkaline Phosphatase 68 (38-126) U/L Total Protein 7.1 (6.3-8.2) g/dL Albumin 4.3 (3.5-5.0) g/dL Disposition Clinical Impression: Altered mental status, Seizure, Renal failure Disposition: ADMITTED IP TO THIS HOSP Condition: Fair Referrals: Nonstaff,Physician [Primary Care Provider] - 1-2 days
[2019-04-12 07:03] LABS: Basophils # (A) 0.1 k/uL (0-0.2); Basophils % (A) 1 %; Eosinophils # (A) 0.2 k/uL (0-0.7); Eosinophils % (A) 4 %; HCT 31.3 % (39.0-53.0); Lymphocytes # (A) 0.5 k/uL (1.0-4.8); Lymphocytes % (A) 8 %; MCH 34.2 pg (25.0-35.0); MCHC 35.1 g/dL (31.0-37.0); MCV 97.3 fL (80.0-100.0); Mean Platelet Volume 8.2; Monocytes # (A) 0.5 k/uL (0-1.0); Monocytes % (A) 8 %; Neutrophils # (A) 4.7 k/uL (1.3-7.7); Neutrophils % (A) 78 %; Platelet Count 168 k/uL (150-450); RBC 3.22 m/uL (4.30-5.90); WBC 6.1 k/uL (3.8-10.6)
[2019-04-12 07:10] LABS: Albumin 4.3 g/dL (3.5-5.0); Calcium 8.8 mg/dL (8.4-10.2); Potassium 5.6 mmol/L (3.5-5.1); Total Bilirubin 1.1 mg/dL (0.2-1.3); Total Protein 7.1 g/dL (6.3-8.2)
--- NOTE | 2019-04-12 07:49 | CT ---
EXAMINATION TYPE: CT brain wo con DATE OF EXAM: 04/12/2019 COMPARISON: 11/15/2018 HISTORY: Altered mental status CT DLP: 1091.[address] of the brain was performed. The ventricles, basal cisterns and sulci overlying the cerebral convexities demonstrate mild enlargem ent. There is no evidence for intracranial hemorrhage or sulcal effacement. There is decreased attenuation about the periventricular white matter and deep white matter of both c erebral hemispheres, compatible with chronic small vessel ischemia. Differential diagnosis does inclu de demyelination. No mass effects are seen.No midline shift. Osseous calvarium is intact. If symptoms persist consider MRI. IMPRESSION: 1. Age related atrophic and chronic small vessel ischemic change without acute intracranial process s een at this time.
--- NOTE | 2019-04-12 08:09 | XR ---
EXAMINATION TYPE: XR chest 2V DATE OF EXAM: 04/12/2019 COMPARISON: NONE HISTORY: Shortness of breath TECHNIQUE: Frontal and lateral views of the chest are obtained. FINDINGS: Scattered senescent parenchymal changes noted. Hyperinflation compatible with COPD. No evidence for infiltrate. No evidence for atelectasis. Heart size is stable. Mediastinal structures are stable and grossly unremarkable. No evidence for hilar prominence. Degenerative changes dorsal spine. IMPRESSION: 1. No evidence for acute pulmonary disease.
[2019-04-12] MEDS ORDERED: ONDANSETRON 4 MG/2 ML VIAL IVP PRN (08:37)
[2019-04-12] MEDS ORDERED: NALOXONE 0.4 MG/ML 1 ML VIAL IV PRN ×2 (08:37→15:24)
[2019-04-12 11:51] LABS: Glucose,Whole Blood 116 mg/dL (75-99)
--- NOTE | 2019-04-12 13:37 | P.NPCON ---
History of Present Illness - Reason for Consult end stage renal disease - History of Present Illness Reason for consultation: End-stage liver disease History of present illness: Patient is a 69-year-old male seen in consultation for end-stage renal disease. He is maintained on hemodialysis on Monday schedule. Patient presented to the hospital due to altered mental status. Patient was driving to the dialysis unit and did not feel well and therefore drove back home. Per family, he was not acting himself. Currently the patient is resting in bed. He is alert and oriented. He denies chest pain or shortness of breath. He does respond to verbal commands. He denies any vision changes. No syncopal episodes. Hemodynamically he is stable. Patient is afebrile. He does not have an elevated white count. Patient did sustain a fall at home on Monday. He was evaluated at [facility] at that time. Patient's CAT scan this admission revealed no acute changes. Chest x-ray was not suggestive of fluid overload. Last hemodialysis was on Monday. Vital signs are stable. General: The patient appeared well nourished and normally developed. HEENT: Head exam is unremarkable. Neck is without jugular venous distension. LUNGS: Lungs are clear to auscultation and percussion. Breath sounds decreased. HEART: Rate and Rhythm are regular. First and second heart sounds normal. No murmurs, rubs or gallops. ABDOMEN: Abdominal exam reveals normal bowel sounds. Non-tender and non- distended. No evidence of peritonitis. EXTREMITITES: No clubbing, cyanosis, or edema. Past Medical History Past Medical History: Diabetes Mellitus, Hypertension, Memory Impairment, Myocardial Infarction (MT), Renal Disease Additional Past Medical History / Comment(s): PRINCE weinstein historian Last Myocardial Infarction Date:: unknown History of Any Multi-Drug Resistant Organisms: None Reported Additional Past Surgical History / Comment(s): PRINCE weinstein historian Smoking Status: Former smoker Past Alcohol Use History: Occasional Past Drug Use History: None Reported Medications and Allergies Home Medications Medication Instructions Recorded Confirmed Type Carvedilol 25 mg PO BID 11/15/18 04/12/19 History Omeprazole 20 mg PO DAILY 11/15/18 04/12/19 History Tamsulosin HCl [Flomax] 0.4 mg PO DAILY 11/15/18 04/12/19 History hydrALAZINE HCL [Apresoline] 100 mg PO TID 04/12/19 04/12/19 History Allergies Allergy/AdvReac Type Severity Reaction Status Date / Time No Known Allergies Allergy Verified 04/12/19 09:23 Physical Exam Vitals: Vital Signs Temp Pulse Pulse Resp BP BP Pulse Ox 04/12/19 10:03 71 17 149/67 94 L 04/12/19 09:45 80 17 118/81 97 04/12/19 08:46 69 18 152/76 96 04/12/19 08:18 70 18 171/82 95 04/12/19 05:47 97.1 F L 77 18 197/93 97 Intake and Output 04/11/19 04/12/19 04/12/19 22:59 06:59 14:59 Other: Weight 84.822 kg Results - Lab Results Most recent lab results Calcium 8.8 mg/dL (8.4-10.2) 04/12/19 06:50 04/12/19 06:50 04/12/19 06:50 Assessment and Plan Plan: Assessment: 1. End-stage renal disease maintained on hemodialysis on Monday schedule. Patient has an AV fistula. 2. Hypertension with chronic kidney disease. 3. Altered mental status. Unclear etiology. Brain CT negative. No evidence of infection. 4. Hyperkalemia secondary to chronic kidney disease. 5. Anemia of chronic kidney disease. Hemoglobin at goal. Plan: Hemodialysis today with goal 2 L ultrafiltration. Resume home antihypertensives. Check UA and urine culture. Check 1 set of blood culture. Thank you for the consultation. I will continue to follow the patient with you during his hospital stay.
--- NOTE | 2019-04-12 15:29 | P.HPIM ---
History of Present Illness H&P Date: 04/12/19 Chief Complaint: Altered mental status 69-year-old male seen in consultation for end-stage renal disease. He is maintained on hemodialysis on Monday schedule. Patient presented to the hospital due to altered mental status. Patient was driving to the dialysis unit and did not feel well and therefore drove back home. Per family, he was not acting himself. Currently the patient is resting in bed. He is alert and oriented. He denies chest pain or shortness of breath. He does respond to verbal commands. He denies any vision changes. No syncopal ep isodes. Hemodynamically he is stable. Patient is afebrile. He does not have an elevated white count. Patient did sustain a fall at home on Monday. He was evaluated at [facility] at that time. Patient's CAT scan this admission revealed no acute changes. Chest x-ray was not suggestive of fluid overload. Last hemodialysis was on Monday. Review of Systems Complete review of system performed, pertinent positives per HPI, otherwise negative Past Medical History Past Medical History: Diabetes Mellitus, Hypertension, Memory Impairment, Myocardial Infarction (MA), Renal Disease Additional Past Medical History / Comment(s): PRINCE pt poor historian Last Myocardial Infarction Date:: unknown History of Any Multi-Drug Resistant Organisms: None Reported Past Surgical History: Appendectomy, Heart Catheterization With Stent, Hernia Repair, Tonsillectomy Additional Past Surgical History / Comment(s): PRINCE pt poor historian Past Anesthesia/Blood Transfusion Reactions: No Reported Reaction Date of Last Stent Placement:: 2015 Smoking Status: Former smoker - Past Family History Mother Family Medical History: Diabetes Mellitus, Hyperlipidemia, Hypertension Father Family Medical History: Hyperlipidemia, Hypertension Medications and Allergies Home Medications Medication Instructions Recorded Confirmed Type Carvedilol 25 mg PO BID 11/15/18 04/12/19 History Omeprazole 20 mg PO DAILY 11/15/18 04/12/19 History Tamsulosin HCl [Flomax] 0.4 mg PO DAILY 11/15/18 04/12/19 History hydrALAZINE HCL [Apresoline] 100 mg PO TID 04/12/19 04/12/19 History Allergies Allergy/AdvReac Type Severity Reaction Status Date / Time No Known Allergies Allergy Verified 04/12/19 09:23 Physical Exam Vitals: Vital Signs Temp Pulse Pulse Resp BP BP Pulse Ox 04/12/19 10:03 71 17 149/67 94 L 04/12/19 09:45 80 17 118/81 97 04/12/19 08:46 69 18 152/76 96 04/12/19 08:18 70 18 171/82 95 04/12/19 05:47 97.1 F L 77 18 197/93 97 Intake and Output 04/11/19 04/12/19 04/12/19 22:59 06:59 14:59 Other: Weight 84.822 kg 84.822 kg Constitutional: No acute distress, conversant, pleasant Eyes:Anicteric sclerae, moist conjunctiva, no lid-lag, PERRLA, ENMT: Oropharynx clear, no erythema, exudates Neck: Supple, FROM, no masses, or JVD, No carotid bruits, No thyromegaly Lungs: Clear to auscultation, Clear to percussion, Normal respiratory effort, no accessory muscle use Cardiovascular: Heart regular in rate and rhythm, No murmurs, gallops, or rubs, No peripheral edema Abdominal: Soft, Nontender, no guarding, rebound or rigidity, Normoactive bowel sounds, No hepatomegaly, No splenomegaly, No palpable mass Skin: Normal temperature, tone, texture, turgor, no induration, No subcutaneous nodules, No rash, lesions, No ulcers Extremities: No digital cyanosis, No clubbing, Pedal pulses intact and symmetrical, Radial pulses intact and symmetrical, No calf tenderness Psychiatric: Alert and oriented to person, place and time, appropriate affect, intact judgement Neuro: Muscles Strength 5/5 in all 4 extremities, Sensation to light touch grossly present throughout, Cranial nerves II-XII grossly intact, no focal s ensory deficits Results CBC & Chem 7: 04/12/19 06:50 04/12/19 06:50 Labs: Abnormal Lab Results - Last 24 Hours (Table) 04/12/19 04/12/19 04/12/19 Range/Units 06:50 06:50 11:50 RBC 3.22 L (4.30-5.90) m/uL Hgb 11.0 L (13.0-17.5) gm/dL Hct 31.3 L (39.0-53.0) % Lymphocytes # 0.5 L (1.0-4.8) k/uL Sodium 136 L (137-145) mmol/L Potassium 5.6 H (3.5-5.1) mmol/L Chloride 90 L (98-107) mmol/L Carbon Dioxide 31 H (22-30) mmol/L BUN 73 H (9-20) mg/dL Creatinine 10.63 H* (0.66-1.25) mg/dL Glucose 156 H (74-99) mg/dL POC Glucose (mg/dL) 116 H (75-99) mg/dL Thrombosis Risk Factor Assmnt - Choose All That Apply Each Factor Represents 1 point: Medical pt on bed rest, Obesity (BMI >25) Other Risk Factors: No Each Risk Factor Represents 2 Points: Age 61-74 years Other congenital or acquired thrombophilia - If yes, enter type in comment: No Thrombosis Risk Factor Assessment Total Risk Factor Score: 4 Thrombosis Risk Factor Assessment Level: Moderate Risk Assessment and Plan Plan: Acute metabolic encephalopathy with hyperkalemia, rule out infection versus seizure Neurology consulted, EEG recommended Neuro checks every 4hrs Check UA and urine culture. Check 1 set of blood culture. ESRD: Nephrology consult is, already seen patient Hemodialysis today Essential hypertension Resume home antihypertensives. Anticipated length of stay: less than 2 midnights. Admitted to observation. Anticipated discharge: Home
[2019-04-12 16:42] LABS: Glucose,Whole Blood 169 mg/dL (75-99)
[2019-04-12] MEDS: hydrALAZINE HCL 50 MG TAB PO SCH ×2 (16:51→22:44)
[2019-04-12] MEDS: TAMSULOSIN 0.4 MG CAP.ER.24H PO SCH (16:51)
[2019-04-12] MEDS: PANTOPRAZOLE 40 MG TABLET PO SCH (16:51)
[2019-04-12] MEDS: CARVEDILOL 12.5 MG TAB PO SCH (16:52)
--- NOTE | 2019-04-12 18:02 | EEG ---
ELECTROENCEPHALOGRAM REPORT DATE OF PROCEDURE: 04/12/2019 ELECTROENCEPHALOGRAM (EEG) REPORT: TECHNIQUE: A routine 18-channel EEG was performed with video using the 10/20 international electrode placement system. HISTORY: Patient "not acting like himself." Patient felt dizzy. Patient recently diagnosed with seizures? CURRENT MEDICATIONS: Zofran. STUDY DURATION: 24 minutes. FINDINGS: Please note that the patient was drowsy or asleep for the majority of this recording. BACKGROUND: The background activity consisted of 6 to 7 Hz rhythmic waveforms symmetrically distributed over both posterior quadrants. ACTIVATION: Hyperventilation: Not performed. Photic stimulation: No driving seen. Sleep: Stages I and II sleep noted. ABNORMALITIES: Intermittent diffuse 4 to 6 Hz polymorphic theta range slowing was seen. One channel of this EEG was dedicated to EKG, it demonstrated a sinus rhythm. IMPRESSION: Abnormal EEG. The diffuse theta range slowing mentioned above is not epileptiform in nature. In combination with the slow background, these findings indicate moderate diffuse cerebral dysfunction as may be seen in a toxometabolic encephalopathy. Please note that some of these findings may be state-related (drowsy/sleep) . No seizures were recorded. No epileptiform activity was present. MMODL / IJN: [id number] / [facility] CENTERArturo
--- NOTE | 2019-04-12 18:50 | P.CNNES ---
History of Present Illness Consult date: 04/12/19 Reason for Consult: AMs Chief complaint: AMS History of Present Illness: HISTORY OF PRESENT ILLNESS: Thank you for allowing me to evaluate Mr. Amari aY. Mr. Ya is a 69 year-old man with PMhx of diabetes, HTN, memory impairment, AR, renal failure on dialysis (M,W,F), presented to [facility] for altered mental status. No family at bedside. Per ED note, family had said that he was not acting "himself." Patient was on his way to dialysis when he felt dizzy and didn't feel safe to drive himself home. At this time, patient with no complaints. He denies ever having similar episodes. Denies any headache, nausea, vomiting, recent sickness, double/blurry vision, weakness, numbness or tingling. Patient feels like he is his normal self. PAST MEDICAL HISTORY: diabetes, HTN, memory impairment, AR, renal failure on dialysis (M,W,F) PAST SURGICAL HISTORY: Unknown HOME MEDICATIONS: Atorvastatin, carvedilol, omeprazole, tamsulosin, amlodipine, hydralazine, darbepoetin, folic acid, sevelamer ALLERGIES: NKDA SOCIAL HISTORY: Former smoker. REVIEW OF SYSTEMS: The 14 systems are reviewed and no additional points are identified compared to the review of systems documented history and physical PHYSICAL EXAMINATION: VITAL SIGNS: T 97.1 HR 77 RR 18 BP 197/93 O2 sat 97% on RA GEN.: NAD, slightly irritable but cooperative HEENT: NCAT, sclera without icterus NECK: Supple SKIN AND EXTREMITIES: Warm to touch, no edema NEURO: MENTAL STATUS: Patient alert and oriented to self, place, time. Able to name the current president. Speech fluent, able to name and repeat, following all commands readily. No right and left disorientation, neglect. CRANIAL NERVES II THROUGH XII: II: Pupils are equal and reactive to light symmetrically. No afferent pupillary defect. Visual dickerson are intact. III, IV, : No ptosis. Extraocular movements full. No nystagmus. V: Facial sensation intact from V1-3. VII. No clear facial asymmetry. VIII: Hearing intact to finger rub bilaterally. IX, X: Symmetric palate elevation. XI: Shoulder shrug intact. XII: Tongue midline without fasciculation or atrophy. MOTOR: Normal bulk/tone. No pronator drift or tremor. Strength is 5/5 throughout all 4 extremities. SENSORY: Intact to light touch pinprick in all 4 extremities. REFLEXES: 2+ throughout. Toes are downgoing. COORDINATION: Finger to nose intact. No dysmetria. GAIT: deferred DIAGNOSTIC TESTING: LABORATORY: WBC 6.1 Hgb 11.0 Platelet 168 Na 136 K 5.6 Cl 90 CO2 31 BUN 73 Cr 10.63 Glucose 156 AST 26 ALT 12 AlkPhos 68 IMAGING: CT Head w/o contrast 04/12/19: Age-related atrophic and chronic small vessel ischemic change without acute intracranial process seen at this time. 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 ASSESSMENT/RECOMMENDATIONS: 69 year-old man with PMhx of diabetes, HTN, memory impairment, AR, renal failure on dialysis (M,W,F), presented to [facility] for altered mental status. Patient at this time no focal neuro deficit. Patient noted to have elevated BUN and Cr, and upon review of his previous labs, Cr had been as low as 5.08 in 10/2018. Routine EEG with no epileptiform or seizure activity. Patient likely had metabolic encephalopathy in the setting of uremia. 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 Would benefit from getting MRI brain w/o contrast. Patient should also get an outpatient neurologist follow-up within 2-3 weeks of discharge. Please feel free to contact via [employer] over the weekend with additional questions or concerns. 1. Past Medical History Past Medical History: Diabetes Mellitus, Hypertension, Memory Impairment, Myocardial Infarction (AR), Renal Disease Additional Past Medical History / Comment(s): PRINCE pt poor historian Last Myocardial Infarction Date:: unknown History of Any Multi-Drug Resistant Organisms: None Reported Additional Past Surgical History / Comment(s): PRINCE pt poor historian Smoking Status: Former smoker Past Alcohol Use History: Occasional Past Drug Use History: None Reported - Past Family History Mother Family Medical History: Diabetes Mellitus, Hyperlipidemia, Hypertension Father Family Medical History: Hyperlipidemia, Hypertension Medications and Allergies Home Medications Medication Instructions Recorded Confirmed Type Carvedilol 25 mg PO BID 11/15/18 04/12/19 History Omeprazole 20 mg PO DAILY 11/15/18 04/12/19 History Tamsulosin HCl [Flomax] 0.4 mg PO DAILY 11/15/18 04/12/19 History hydrALAZINE HCL [Apresoline] 100 mg PO TID 04/12/19 04/12/19 History Allergies Allergy/AdvReac Type Severity Reaction Status Date / Time No Known Allergies Allergy Verified 04/12/19 09:23 Physical Examination - Vital Signs Vital Signs: Vital Signs Temp Pulse Pulse Resp BP BP Pulse Ox 04/12/19 10:03 71 17 149/67 94 L 04/12/19 09:45 80 17 118/81 97 04/12/19 08:46 69 18 152/76 96 04/12/19 08:18 70 18 171/82 95 04/12/19 05:47 97.1 F L 77 18 197/93 97 Intake and Output 04/11/19 04/12/19 04/12/19 22:59 06:59 14:59 Other: Weight 84.822 kg Results - Laboratory Findings CBC and BMP: 04/12/19 06:50 04/12/19 06:50 Abnormal Lab Findings: Abnormal Labs 04/12/19 04/12/19 04/12/19 06:50 06:50 11:50 RBC 3.22 L Hgb 11.0 L Hct 31.3 L Lymphocytes # 0.5 L Sodium 136 L Potassium 5.6 H Chloride 90 L Carbon Dioxide 31 H BUN 73 H Creatinine 10.63 H* Glucose 156 H POC Glucose (mg/dL) 116 H
[2019-04-13 08:29] LABS: Basophils # (A) 0.1 k/uL (0-0.2); Basophils % (A) 1 %; Eosinophils # (A) 0.2 k/uL (0-0.7); Eosinophils % (A) 4 %; HCT 32.8 % (39.0-53.0); HGB 10.9 gm/dL (13.0-17.5); Lymphocytes # (A) 0.4 k/uL (1.0-4.8); Lymphocytes % (A) 7 %; MCH 33.4 pg (25.0-35.0); MCHC 33.3 g/dL (31.0-37.0); MCV 100.3 fL (80.0-100.0); Macrocytosis Slight; Mean Platelet Volume 8.4; Monocytes # (A) 0.4 k/uL (0-1.0); Monocytes % (A) 7 %; Neutrophils # (A) 4.7 k/uL (1.3-7.7); Neutrophils % (A) 79 %; Platelet Count 146 k/uL (150-450); RBC 3.27 m/uL (4.30-5.90); RDW 15.1 % (11.5-15.5)
[2019-04-13 08:33] LABS: Albumin 4.4 g/dL (3.5-5.0); Calcium 9.1 mg/dL (8.4-10.2); Magnesium 2.2 mg/dL (1.6-2.3); Phosphorus 7.4 mg/dL (2.5-4.5); Potassium 5.6 mmol/L (3.5-5.1)
--- NOTE | 2019-04-13 09:10 | MR ---
EXAMINATION TYPE: MR brain wo con DATE OF EXAM: 04/13/2019 9:03 AM. COMPARISON: NONE. HISTORY: Frontal abrasion. Technique: Multiplanar, multiecho imaging of the brain was obtained without intravenous contrast. FINDINGS: The study is markedly the graded by motion artifact. This is in spite of a fast brain prot ocol. Structures are unremarkable. There is a normal craniocervical junction. Echoplanar diffusion imaging shows increased signal in the left temporal lobe as well as the frontal lobes bilaterally. I believe this is artifactual. There are normal vascular flow voids. The orbits are unremarkable. There is no evidence of a CP angle mass lesion. There is both punctate and confluent periventricular white matter disease likely on the basis of historian research assistant davey ischemia and small vessel disease. There is no mass effect, midline shift or intracranial blood i dentified. IMPRESSION: 1. SUBOPTIMAL EXAMINATION. 2. NO ACUTE INTRACRANIAL ABNORMALITY. 3. BOTH PUNCTATE AND CONFLUENT PERIVENTRICULAR WHITE MATTER CHANGE COMPATIBLE WITH A COMBINATION OF S MALL VESSEL DISEASE AND CHRONIC WHITE MATTER ISCHEMIC CHANGE.
[2019-04-13] MEDS: TAMSULOSIN 0.4 MG CAP.ER.24H PO SCH (10:13)
[2019-04-13] MEDS: PANTOPRAZOLE 40 MG TABLET PO SCH (10:13)
[2019-04-13] MEDS: CARVEDILOL 12.5 MG TAB PO SCH ×2 (10:13→17:23)
[2019-04-13] MEDS: hydrALAZINE HCL 50 MG TAB PO SCH ×3 (10:14→20:27)
--- NOTE | 2019-04-13 12:13 | P.PN ---
Subjective Progress Note Date: 04/13/19 Principal diagnosis: This is a 69-year-old male with ESRD on dialysis Monday. He was admitted with change in mental status. Workup has shown a normal CT MRI shows chronic changes. Metabolic workup was negative. He does not Mrs. dialysis therefore this is unlikely to be uremic His back to normal. He wants to eat. Is able to answer all questions He does have history of diabetes mellitus hypertension and memory impairment and history of ASHD. Objective - Vital Signs Vital signs: Vital Signs Temp 97.9 F 04/13/19 07:26 Pulse 61 04/13/19 07:26 Resp 15 04/13/19 07:26 BP 129/57 04/13/19 07:26 Pulse Ox 93 L 04/13/19 07:26 Intake & Output 04/12/19 04/13/19 04/13/19 18:59 06:59 18:59 Intake Total 340 Output Total 1999 Balance -1660 Weight 84.822 kg Intake: Oral 340 Output: Hemodialysis 1999 On examination awake alert oriented to time place percent. He was able to respond all the questions that were answered HEENT exam no JVP neck is supple no facial asymmetry Lungs clear to auscultation good air entry bilaterally Heart sounds are unremarkable for any murmur rub Abdomen soft nontender Extremity exam was no edema Neurologically awake alert oriented no focal motor deficit - Labs CBC & Chem 7: 04/13/19 07:01 04/13/19 07:01 Labs: Abnormal Lab Results - Last 24 Hours (Table) 04/12/19 04/13/19 04/13/19 Range/Units 16:40 07:01 07:01 RBC 3.27 L (4.30-5.90) m/uL Hgb 10.9 L (13.0-17.5) gm/dL Hct 32.8 L (39.0-53.0) % MCV 100.3 H (80.0-100.0) fL Plt Count 146 L (150-450) k/uL Lymphocytes # 0.4 L (1.0-4.8) k/uL Sodium 136 L (137-145) mmol/L Potassium 5.6 H (3.5-5.1) mmol/L Chloride 95 L (98-107) mmol/L BUN 57 H (9-20) mg/dL Creatinine 8.96 H* (0.66-1.25) mg/dL Glucose 144 H (74-99) mg/dL POC Glucose (mg/dL) 169 H (75-99) mg/dL Phosphorus 7.4 H (2.5-4.5) mg/dL Assessment and Plan Assessment: Impression 1. ESRD on dialysis Monday. Stable 2. Admitted with change in mental status resolved. Possible TIA. Workup has shown normal MRI except for chronic changes and metabolic workup was unremarkable. 3. Diabetes mellitus, and no evidence of hypoglycemic event 4. Blood pressure controlled, vital signs unremarkable. 5. Anemia ESRD. Hemoglobin at target 10.9 6. Slightly high phosphorus 7.4 Recommendation 1. Neurology is evaluating the case 2. Patient can be discharged from a nephrological perspective 3. He is here we'll monitor his labs appropriate for ESRD
[2019-04-13] MEDS ORDERED: SODIUM POLYSTYRENE SULFONATE 15 GM/60 ML BOTTLE PO STA (12:16)
--- NOTE | 2019-04-13 12:26 | P.PN ---
Subjective Progress Note Date: 04/13/19 Principal diagnosis: Change in ms No overnight issues, urine still not collected. Patent sleeping this am, when waked he states he has no complaints. Objective - Vital Signs Vital signs: Vital Signs Temp 97.9 F 04/13/19 07:26 Pulse 61 04/13/19 07:26 Resp 15 04/13/19 07:26 BP 129/57 04/13/19 07:26 Pulse Ox 93 L 04/13/19 07:26 Intake & Output 04/12/19 04/13/19 04/13/19 18:59 06:59 18:59 Intake Total 340 Output Total 1999 Balance -1660 Weight 84.822 kg Intake: Oral 340 Output: Hemodialysis 1999 - Exam Constitutional: No acute distress, conversant, pleasant Eyes:Anicteric sclerae, moist conjunctiva, no lid-lag, PERRLA, ENMT: Oropharynx clear, no erythema, exudates Neck: Supple, FROM, no masses, or JVD, No carotid bruits, No thyromegaly Lungs: Clear to auscultation, Clear to percussion, Normal respiratory effort, no accessory muscle use Cardiovascular: Heart regular in rate and rhythm, No murmurs, gallops, or rubs, No peripheral edema Abdominal: Soft, Nontender, no guarding, rebound or rigidity, Normoactive bowel sounds, No hepatomegaly, No splenomegaly, No palpable mass Skin: Normal temperature, tone, texture, turgor, no induration, No subcutaneous nodules, No rash, lesions, No ulcers Extremities: No digital cyanosis, No clubbing, Pedal pulses intact and symmetrical, Radial pulses intact and symmetrical, No calf tenderness Psychiatric: Alert and oriented to person, place and time, appropriate affect, intact judgement Neuro: Muscles Strength 5/5 in all 4 extremities, Sensation to light touch grossly present throughout, Cranial nerves II-XII grossly intact, no focal sensory deficits - Labs CBC & Chem 7: 04/13/19 07:01 04/13/19 07:01 Labs: Abnormal Lab Results - Last 24 Hours (Table) 04/12/19 04/13/19 04/13/19 Range/Units 16:40 07:01 07:01 RBC 3.27 L (4.30-5.90) m/uL Hgb 10.9 L (13.0-17.5) gm/dL Hct 32.8 L (39.0-53.0) % MCV 100.3 H (80.0-100.0) fL Plt Count 146 L (150-450) k/uL Lymphocytes # 0.4 L (1.0-4.8) k/uL Sodium 136 L (137-145) mmol/L Potassium 5.6 H (3.5-5.1) mmol/L Chloride 95 L (98-107) mmol/L BUN 57 H (9-20) mg/dL Creatinine 8.96 H* (0.66-1.25) mg/dL Glucose 144 H (74-99) mg/dL POC Glucose (mg/dL) 169 H (75-99) mg/dL Phosphorus 7.4 H (2.5-4.5) mg/dL Assessment and Plan Plan: Acute metabolic encephalopathy with hyperkalemia, rule out infection versus seizure Neurology consulted, EEG showed generalized slowing consistent with metabolic encephalopathy, MRI brain done as well and that was negative for acute intracranial process. Check UA and urine culture. Discussed with nursing. Check 1 set of blood culture. Pending. ESRD: Nephrology consult is, already seen patient Hemodialysis Monday, Monday and Monday. Essential hypertension Resume home antihypertensives. Anticipated discharge: Home tomorrow.
[2019-04-14] MEDS: PANTOPRAZOLE 40 MG TABLET PO SCH (09:41)
[2019-04-14] MEDS: TAMSULOSIN 0.4 MG CAP.ER.24H PO SCH (09:41)
[2019-04-14] MEDS: hydrALAZINE HCL 50 MG TAB PO SCH ×3 (10:03→20:37)
[2019-04-14] MEDS: CARVEDILOL 12.5 MG TAB PO SCH ×2 (10:03→17:19)
--- NOTE | 2019-04-14 11:34 | P.PN ---
Subjective Progress Note Date: 04/14/19 Principal diagnosis: This is a 69-year-old male with ESRD on dialysis Monday. He was admitted with change in mental status. Workup has shown a normal CT MRI shows chronic changes. Metabolic workup was negative. He does not Miss his dialysis therefore this is unlikely to be uremic His back to normal. He wants to eat. Is able to answer all questions. This morning he was dialyzed and 2 L ultrafiltrate without any problems tolerated very well He does have history of diabetes mellitus hypertension and memory impairment and history of ASHD. Objective - Vital Signs Vital signs: Vital Signs Temp 97.7 F 04/14/19 07:00 Pulse 64 04/14/19 07:00 Resp 16 04/14/19 07:00 BP 143/64 04/14/19 07:00 Pulse Ox 96 04/14/19 07:00 Intake & Output 04/13/19 04/14/19 04/14/19 18:59 06:59 18:59 Intake Total 150 296 Balance 150 296 Intake: Oral 150 296 Other: # Voids 1 # Bowel Movements 1 Examination awake alert oriented. HEENT exam no JVP neck is supple no facial asymmetry Lungs clear to auscultation good air entry bilaterally Heart sounds are unremarkable no murmur rub Abdomen soft nontender Extremity exam was no edema Neurologically awake alert oriented - Labs CBC & Chem 7: 04/13/19 07:01 04/13/19 07:01 Labs: Microbiology - Last 24 Hours (Table) 04/12/19 15:38 Blood Culture - Preliminary Blood No Growth after 24 hours Assessment and Plan Assessment: Impression 1. ESRD on dialysis Monday. Stable. His dialysis today Monday because off holiday schedule and tomorrow is off in the outpatient unit 2. Admitted with change in mental status resolved. Possible TIA. Workup has shown normal MRI except for chronic changes and metabolic workup was unremarkable. he recovered his mental status back to baseline 3. Diabetes mellitus, and no evidence of hypoglycemic event 4. Blood pressure controlled, vital signs unremarkable. 5. Anemia ESRD. Hemoglobin at target 10.9 6. Slightly high phosphorus 7.4 Recommendation 1. Neurology is evaluating the case 2. Patient can be discharged from a nephrological perspective 3. He is here we'll monitor his labs appropriate for ESRD
--- NOTE | 2019-04-14 12:45 | P.DS ---
Providers Date of admission: 04/12/19 08:52 Expected date of discharge: 04/14/19 Attending physician: Julissa Tomlin MD Consults: 04/12/19 08:37 Consult Physician Stat Consulting Provider: Cortney Bowser Consult Reason/Comments: possible seizure, altered mental status Do you want consulting provider notified?: Yes Consult Physician Stat Consulting Provider: Doreen Hadley Consult Reason/Comments: dialysis Do you want consulting provider notified?: Yes Primary care physician: Physician Nonstaff Hospital Course: 69-year-old male with hx of HTN, ESRD, hx of recent enterococcus bacteremia about 6 months ago presented to the hospital due to altered mental status. Patient was driving to the dialysis unit and did not feel well and therefore drove back home. Per family, he was not acting himself. When he was seen in the ER he was alert and oriented. He denied chest pain or shortness of breath. He denied any vision changes, focal weakness or numbness. No syncopal episodes. no fevers or chills. No cough. No nausea, vomiting or diarrhea. Patient did sustain a fall at home on Monday. Evaluation in the emergency department was essentially negative. Hemodynamica lly he was stable. Labs were all benign and computed tomography scan of the head. Chest x-ray was not suggestive of fluid overload. Last hemodialysis was on Monday. Patient was dialyzed on the day of admission. He was seen by nephrology service. Subsequently he was admitted to the hospital for neuro checks and neurology consultation. He was seen by neurology who recommended EEG and MRI of the brain, both were negative for acute events. EEG showed generalized slowing consistent with a metabolic encephalopathy. He also had blood cx that was negative. During the hospitalization patient did not have any recurrent episodes of confusion. Today his mental status is essentially normal, he will be discharged home in a stable condition. Patient Condition at Discharge: Fair Plan - Discharge Summary Discharge Rx Participant: No New Discharge Prescriptions: Continue Tamsulosin HCl [Flomax] 0.4 mg PO DAILY Omeprazole 20 mg PO DAILY Carvedilol 25 mg PO BID hydrALAZINE HCL [Apresoline] 100 mg PO TID Discharge Medication List Carvedilol 25 mg PO BID 11/15/18 [History] Omeprazole 20 mg PO DAILY 11/15/18 [History] Tamsulosin HCl [Flomax] 0.4 mg PO DAILY 11/15/18 [History] hydrALAZINE HCL [Apresoline] 100 mg PO TID 04/12/19 [History] Follow up Appointment(s)/Referral(s): Nonstaff,Physician [Primary Care Provider] - 1-2 days
[2019-04-14 15:20] LABS: Calcium 8.8 mg/dL (8.4-10.2)
[2019-04-14 15:24] LABS: Potassium 5.3 mmol/L (3.5-5.1)
--- NOTE | 2019-04-14 16:19 | P.PN ---
Subjective Progress Note Date: 04/14/19 Principal diagnosis: Change in ms Patient was about to be discharged, RN called patient's [id number] Franci and she refused to come and become up, Franci stated that patient has been sleeping in his car which patient did not mention. Objective - Vital Signs Vital signs: Vital Signs Temp 97.9 F 04/14/19 12:04 Pulse 69 04/14/19 12:04 Resp 16 04/14/19 07:00 BP 148/88 04/14/19 12:04 Pulse Ox 96 04/14/19 07:00 Intake & Output 04/13/19 04/14/19 04/14/19 18:59 06:59 18:59 Intake Total 150 592 Output Total 1999 Balance 150 -1408 Intake: Oral 150 592 Output: Hemodialysis 1999 Other: # Voids 1 # Bowel Movements 1 - Exam Constitutional: No acute distress, conversant, pleasant Eyes:Anicteric sclerae, moist conjunctiva, no lid-lag, PERRLA, ENMT: Oropharynx clear, no erythema, exudates Neck: Supple, FROM, no masses, or JVD, No carotid bruits, No thyromegaly Lungs: Clear to auscultation, Clear to percussion, Normal respiratory effort, no accessory muscle use Cardiovascular: Heart regular in rate and rhythm, No murmurs, gallops, or rubs, No peripheral edema Abdominal: Soft, Nontender, no guarding, rebound or rigidity, Normoactive bowel sounds, No hepatomegaly, No splenomegaly, No palpable mass Skin: Normal temperature, tone, texture, turgor, no induration, No subcutaneous nodules, No rash, lesions, No ulcers Extremities: No digital cyanosis, No clubbing, Pedal pulses intact and symmetric al, Radial pulses intact and symmetrical, No calf tenderness Psychiatric: Alert and oriented to person, place and time, appropriate affect, intact judgement Neuro: Muscles Strength 5/5 in all 4 extremities, Sensation to light touch grossly present throughout, Cranial nerves II-XII grossly intact, no focal sensory deficits - Labs CBC & Chem 7: 04/13/19 07:01 04/14/19 14:58 Labs: Abnormal Lab Results - Last 24 Hours (Table) 04/14/19 Range/Units 14:58 Sodium 132 L (137-145) mmol/L Potassium 5.3 H (3.5-5.1) mmol/L Chloride 96 L (98-107) mmol/L Carbon Dioxide 20 L (22-30) mmol/L BUN 45 H (9-20) mg/dL Creatinine 6.72 H (0.66-1.25) mg/dL Glucose 190 H (74-99) mg/dL Microbiology - Last 24 Hours (Table) 04/12/19 15:38 Blood Culture - Preliminary Blood No Growth after 24 hours Assessment and Plan Plan: Acute metabolic encephalopathy with hyperkalemia Neurology consulted, EEG showed generalized slowing consistent with metabolic encephalopathy, MRI brain done as well and that was negative for acute intracranial process. Blood culture negative Patient's social environment likely contributing to this, we'll contact Adult Protective Services for evaluation ESRD: Nephrology consult is, already seen patient Hemodialysis Monday, Monday and Monday. Essential hypertension Resume home antihypertensives. Disposition: We'll need care management evaluation to find out the best place for him to go. We'll hold discharge for now.
[2019-04-15] MEDS: hydrALAZINE HCL 50 MG TAB PO SCH ×3 (08:47→21:30)
[2019-04-15] MEDS: TAMSULOSIN 0.4 MG CAP.ER.24H PO SCH (08:47)
[2019-04-15] MEDS: CARVEDILOL 12.5 MG TAB PO SCH ×2 (08:48→18:32)
[2019-04-15] MEDS: PANTOPRAZOLE 40 MG TABLET PO SCH (08:49)
--- NOTE | 2019-04-15 14:22 | PN ---
PROGRESS NOTE Patient is seen for followup for end-stage renal disease. Patient was admitted to the hospital with altered mentation. He is status post dialysis. Patient is stable for discharge from Nephrology standpoint. His mentation has improved. The MRI was did not show any new findings. PHYSICAL EXAMINATION: On examination today, blood pressure was 154/69, heart rate 63, patient is afebrile. Examination of the heart S1, S2. Examination of the lungs, bilateral breath sounds are heard. Abdomen is soft, non-tender. Examination of the lower extremities shows no significant edema. LABS: Show sodium 132 from yesterday, potassium 5.3, creatinine was 6.7 yesterday. ASSESSMENT: 1. End-stage renal disease, on hemodialysis on a Monday, Monday, Monday schedule as outpatient, status post dialysis. Patient will resume his outpatient schedule as outpatient on Monday Because of the holidays. 2. Altered mentation, now resolved. MRI was negative for any acute findings. 3. Anemia of chronic disease, stable. PLAN: Okay to discharge patient, followup as outpatient for hemodialysis. MMODL / IJN: [id number] /
--- NOTE | 2019-04-15 14:24 | P.PN ---
Subjective Progress Note Date: 04/15/19 patient seen and examined at bedside, in good spirits had no complaints today. The patient was expecting to go home. No significant shortness of breath this morning denies chest pain. patient unable to go home today secondary to placement apparently does not have enough room for him at home would like to seek senior care placement. No acute events overnight Objective - Vital Signs Vital signs: Vital Signs Temp 98.4 F 04/15/19 07:00 Pulse 63 04/15/19 07:00 Resp 16 04/15/19 07:00 BP 154/69 04/15/19 07:00 Pulse Ox 97 04/15/19 07:00 Intake & Output 04/14/19 04/15/19 04/15/19 18:59 06:59 18:59 Intake Total 1628 350 296 Output Total 1999 Balance -372 350 296 Intake: Oral 1628 350 296 Output: Hemodialysis 1999 - Exam Constitutional: No acute distress, conversant, pleasant Eyes: Anicteric sclerae, moist conjunctiva, no lid-lag, PERRLA ENMT: NC/AT,Oropharynx clear, no erythema, exudates Neck:Supple, FROM, no masses, or JVD, No carotid bruits; No thyromegaly Lungs: Clear to auscultation, Clear to percussion, Normal respiratory effort, no accessory muscle use Cardiovascular: Heart regular in rate and rhythm, No murmurs, gallops, or rubs no peripheral edema Abdominal: Soft Nontender, nom distended, no guarding, no rebound or rigidity, Normoactive bowel sounds No hepatomegaly, No splenomegaly, No palpable mass No abdominal wall hernia noted Skin: Normal temperature, tone, texture, turgor, No induration No subcutaneous nodules, No rash, lesions, No ulcers Extremities:No digital cyanosis No clubbing, Pedal pulses intact and symmetrical Radial pulses intact and symmetrical Normal gait and station, No calf tenderness Psychiatric: Alert and awake, oriented at times Neuro: Muscles Strength 5/5 in all 4 extremities, Sensation to light touch grossly present throughout, Cranial nerves II-XII grossly intact. No focal sensory deficits - Labs CBC & Chem 7: 04/13/19 07:01 04/14/19 14:58 Labs: Abnormal Lab Results - Last 24 Hours (Table) 04/14/19 Range/Units 14:58 Sodium 132 L (137-145) mmol/L Potassium 5.3 H (3.5-5.1) mmol/L Chloride 96 L (98-107) mmol/L Carbon Dioxide 20 L (22-30) mmol/L BUN 45 H (9-20) mg/dL Creatinine 6.72 H (0.66-1.25) mg/dL Glucose 190 H (74-99) mg/dL Microbiology - Last 24 Hours (Table) 04/12/19 15:38 Blood Culture - Preliminary Blood No Growth after 48 hours Assessment and Plan Assessment: Acute metabolic encephalopathy with hyperkalemia Neurology consulted, EEG showed generalized slowing consistent with metabolic encephalopathy, MRI brain done as well and that was negative for acute intracranial process. Blood culture negative Patient's social environment likely contributing to this, we'll contact Adult Protective Services for evaluation ESRD: Nephrology consult is, already seen patient Hemodialysis Monday, Monday and Monday. Essential hypertension Resume home antihypertensives. Disposition: We'll need care management evaluation to find out the best place for him to go. We'll hold discharge for now.
--- NOTE | 2019-04-15 19:37 | P.PN ---
Subjective Progress Note Date: 04/15/19 Patient was seen by Dr. Bowser in consultation on 04/12/2019. Patient offers no new complaints at this time. Patient has been discharged, but patient's family does not want him to go back to his home, or their home. Patient lives in a trailer, which does not have heat. During cold nights, patient sleeps in his car. Patient denies any focal symptoms. Objective - Vital Signs Vital signs: Vital Signs Temp 97.9 F 04/15/19 15:00 Pulse 61 04/15/19 15:00 Resp 16 04/15/19 16:00 BP 153/67 04/15/19 15:00 Pulse Ox 98 04/15/19 15:00 Intake & Output 04/15/19 04/15/19 04/16/19 06:59 18:59 06:59 Intake Total 350 1418 Balance 350 1418 Intake: Oral 350 1418 Other: # Voids 1 - Exam Patient's mental status appears intact. Patient states it's March 1220, but then said was 2019. Patient states he is in [facility] in [place]. He knows name of the current president. Patient's speech and language functions are normal. Cranial nerves are normal. Visual dickerson are full, face is symmetric and tongue protrudes the midline. Pupils are round and reacting. There is no obvious carotid bruit. Muscle strength is normal in the arms and le gs. No ataxia. Sensations equal. - Labs CBC & Chem 7: 04/13/19 07:01 04/14/19 14:58 Labs: Microbiology - Last 24 Hours (Table) 04/12/19 15:38 Blood Culture - Preliminary Blood No Growth after 72 hours Assessment and Plan Assessment: * Altered mental status, likely related to mild metabolic encephalopathy, related to uremia. * End-stage renal disease on hemodialysis Plan: * No other neurological workup indicated. Patient had normal MRI of the brain, only with some small vessel disease. * EEG reported moderate encephalopathy. No epileptiform activity seen. * Patient awaiting transfer to rehab. * Neurologically clear. We will sign off.
[2019-04-16] MEDS: CARVEDILOL 12.5 MG TAB PO SCH ×2 (08:38→16:32)
[2019-04-16] MEDS: PANTOPRAZOLE 40 MG TABLET PO SCH (08:39)
[2019-04-16] MEDS: hydrALAZINE HCL 50 MG TAB PO SCH ×3 (08:39→21:37)
[2019-04-16] MEDS: TAMSULOSIN 0.4 MG CAP.ER.24H PO SCH (08:39)
--- NOTE | 2019-04-16 14:58 | P.PN ---
Subjective Progress Note Date: 04/16/19 Principal diagnosis: Seen for f/u for ESRD. Due for HD today. Objective - Vital Signs Vital signs: Vital Signs Temp 97.4 F L 04/16/19 14:32 Pulse 69 04/16/19 14:32 Resp 12 04/16/19 14:32 BP 138/65 04/16/19 14:32 Pulse Ox 95 04/16/19 14:32 Intake & Output 04/15/19 04/16/19 04/16/19 18:59 06:59 18:59 Intake Total 1418 290 Balance 1418 290 Intake: Oral 1418 290 Other: # Voids 1 1 0 - Constitutional General appearance: Present: average body habitus, cooperative, no acute distress - EENT Eyes: Present: PERRLA, normal appearance - Cardiovascular Rhythm: regular Heart sounds: normal: S1 (no edema), S2 - Gastrointestinal General gastrointestinal: Present: soft - Neurologic Neurologic Comment(s): [employer] grossly intact - Labs CBC & Chem 7: 04/13/19 07:01 04/14/19 14:58 Labs: Microbiology - Last 24 Hours (Table) 04/12/19 15:38 Blood Culture - Preliminary Blood No Growth after 72 hours Assessment and Plan Assessment: 1. ESRD, on HD MWF at [facility] HD unit. For HD today 2. Mental status changes, improved, being followed by Neurology. 3. CKD mineral bone disorder. 4. Social issues, seeking placement at [facility]. PLAN HD today.
--- NOTE | 2019-04-16 15:34 | P.PN ---
Subjective Progress Note Date: 04/16/19 patient doing well, in good spirits. Has no complaints today, no acute events overnight. Scheduled for hemodialysis today Objective - Vital Signs Vital signs: Vital Signs Temp 97.4 F L 04/16/19 14:32 Pulse 69 04/16/19 14:32 Resp 12 04/16/19 14:32 BP 138/65 04/16/19 14:32 Pulse Ox 95 04/16/19 14:32 Intake & Output 04/15/19 04/16/19 04/16/19 18:59 06:59 18:59 Intake Total 1418 290 Balance 1418 290 Intake: Oral 1418 290 Other: # Voids 1 1 0 - Exam Constitutional: No acute distress, conversant, pleasant Eyes: Anicteric sclerae, moist conjunctiva, no lid-lag, PERRLA ENMT: NC/AT,Oropharynx clear, no erythema, exudates Neck:Supple, FROM, no masses, or JVD, No carotid bruits; No thyromegaly Lungs: Clear to auscultation, Clear to percussion, Normal respiratory effort, no accessory muscle use Cardiovascular: Heart regular in rate and rhythm, No murmurs, gallops, or rubs no peripheral edema Abdominal: Soft Nontender, nom distended, no guarding, no rebound or rigidity, Normoactive bowel sounds No hepatomegaly, No splenomegaly, No palpable mass No abdominal wall hernia noted Skin: Normal temperature, tone, texture, turgor, No induration No subcutaneous nodules, No rash, lesions, No ulcers Extremities:No digital cyanosis No clubbing, Pedal pulses intact and symmetrical Radial pulses intact and symmetrical Normal gait and station, No calf tenderness Psychiatric: Alert and awake, oriented at times Neuro: Muscles Strength 5/5 in all 4 extremities, Sensation to light touch grossly present throughout, Cranial nerves II-XII grossly intact. No focal sensory deficits - Labs CBC & Chem 7: 04/13/19 07:01 04/14/19 14:58 Labs: Microbiology - Last 24 Hours (Table) 04/12/19 15:38 Blood Culture - Preliminary Blood No Growth after 72 hours Assessment and Plan Assessment: Acute metabolic encephalopathy with hyperkalemia * secondary to uremic encephalopathy from missed hemodialysis Neurology consulted, EEG showed generalized slowing consistent with metabolic encephalopathy, MRI brain done as well and that was negative for acute intracranial process. Blood culture negative Patient's social environment likely contributing to this, we'll contact Adult Protective Services for evaluation ESRD: Nephrology consult is, already seen patient Hemodialysis Monday, Monday and Monday. Essential hypertension Resume home antihypertensives. Disposition: patient awaiting placementapproval
[2019-04-17] MEDS: TAMSULOSIN 0.4 MG CAP.ER.24H PO SCH (07:32)
[2019-04-17] MEDS: CARVEDILOL 12.5 MG TAB PO SCH ×2 (07:32→17:03)
[2019-04-17] MEDS: hydrALAZINE HCL 50 MG TAB PO SCH ×3 (07:32→21:08)
[2019-04-17] MEDS: PANTOPRAZOLE 40 MG TABLET PO SCH (07:32)
--- NOTE | 2019-04-17 10:22 | P.PN ---
Subjective Progress Note Date: 04/17/19 The patient seen and examined at bedside, no acute events overnight. Oriented to self and date and place this morning. Had hemodialysis yesterday Objective - Vital Signs Vital signs: Vital Signs Temp 98.1 F 04/17/19 07:00 Pulse 69 04/17/19 07:00 Resp 16 04/17/19 07:00 BP 153/70 04/17/19 07:00 Pulse Ox 95 04/17/19 07:00 Intake & Output 04/16/19 04/17/19 04/17/19 18:59 06:59 18:59 Intake Total 300 120 Output Total 1300 200 Balance -1000 -80 Intake: Oral 120 Hemodialysis 300 Output: Urine 200 Hemodialysis 1300 Other: # Voids 0 - Exam Constitutional: No acute distress, conversant, pleasant Eyes: Anicteric sclerae, moist conjunctiva, no lid-lag, PERRLA ENMT: NC/AT,Oropharynx clear, no erythema, exudates Neck:Supple, FROM, no masses, or JVD, No carotid bruits; No thyromegaly Lungs: Clear to auscultation, Clear to percussion, Normal respiratory effort, no accessory muscle use Cardiovascular: Heart regular in rate and rhythm, No murmurs, gallops, or rubs no peripheral edema Abdominal: Soft Nontender, nom distended, no guarding, no rebound or rigidity, Normoactive bowel sounds No hepatomegaly, No splenomegaly, No palpable mass No abdominal wall hernia noted Skin: Normal temperature, tone, texture, turgor, No induration No subcutaneous nodules, No rash, lesions, No ulcers Extremities:No digital cyanosis No clubbing, Pedal pulses intact and symmetrical Radial pulses intact and symmetrical Normal gait and station, No calf tenderness Psychiatric: Alert and awake, oriented at times Neuro: Muscles Strength 5/5 in all 4 extremities, Sensation to light touch grossly present throughout, Cranial nerves II-XII grossly intact. No focal sensory deficits - Labs CBC & Chem 7: 04/13/19 07:01 04/14/19 14:58 Labs: Microbiology - Last 24 Hours (Table) 04/12/19 15:38 Blood Culture - Preliminary Blood No Growth after 96 hours Assessment and Plan Assessment: Acute metabolic encephalopathy with hyperkalemia * secondary to uremic encephalopathy from missed hemodialysis * Neurology consulted, EEG showed generalized slowing consistent with metabolic encephalopathy, MRI brain done as well and that was negative for acute intracranial process. * Blood culture negative * Patient's social environment likely contributing to this, we'll contact Adult Protective Services for evaluation ESRD: * Nephrology consult * Patient had hemodialysis yesterday Essential hypertension * Blood pressure elevated continue home antihypertensives. Disposition: patient awaiting placement approval
--- NOTE | 2019-04-17 14:30 | PN ---
PROGRESS NOTE The patient is seen for followup for end-stage renal disease. He was dialyzed yesterday. Patient denies any complaints this morning. PHYSICAL EXAMINATION: On examination, blood pressure is 153/70, heart rate 69 per minute he is afebrile. Examination of the heart S1, S2. Examination of the lungs, bilateral breath sounds are heard. Abdomen is soft, non-tender. Examination of lower extremities shows no evidence of edema. SENIOR PHARMACY TECHNICIAN exam grossly intact. LABS: Show sodium 132, potassium 5.3 from 04/14. ASSESSMENT: 1. End-stage renal disease, on hemodialysis on a Monday, Monday, Monday schedule as outpatient. We will plan on treatment again on Monday. 2. Hyperkalemia, currently improved. 3. Altered mentation, now improved since admission. 4. Generalized debility. Awaiting placement. PLAN: Next dialysis on Monday. MMODL / IJN: [id number] /
[2019-04-18 07:12] LABS: Glucose,Whole Blood 152 mg/dL (75-99)
[2019-04-18] MEDS: hydrALAZINE HCL 50 MG TAB PO SCH ×3 (08:02→22:45)
[2019-04-18] MEDS: CARVEDILOL 12.5 MG TAB PO SCH ×2 (08:02→17:45)
[2019-04-18] MEDS: TAMSULOSIN 0.4 MG CAP.ER.24H PO SCH (08:02)
[2019-04-18] MEDS: PANTOPRAZOLE 40 MG TABLET PO SCH (08:02)
[2019-04-18 10:20] LABS: Calcium 8.4 mg/dL (8.4-10.2)
[2019-04-18 10:53] LABS: Potassium 6.9 mmol/L (3.5-5.1)
[2019-04-18 11:07] LABS: Glucose,Whole Blood 176 mg/dL (75-99)
--- NOTE | 2019-04-18 11:10 | XR ---
EXAMINATION TYPE: XR chest 2V DATE OF EXAM: 04/18/2019 COMPARISON: 04/12/2019 TECHNIQUE: PA and lateral views submitted. HISTORY: Cough FINDINGS: The lungs are clear and there is no pneumothorax, pleural effusion, or focal pneumonia. Hyperinflat ion noted. Chronic nodularity overlying the right lower lobe which could represent nipple shadow. Coa rsened interstitium is seen and there is hypertrophic degenerative change of the spine. Postsurgical change right shoulder. Mild cardiomegaly. Vascular calcifications noted. IMPRESSION: 1. Stable changes of COPD with mild cardiomegaly. Correlate for chronic interstitial lung disease, br onchitis or interstitial pneumonitis. 2. Vague 7 mm nodule right lower lobe most likely the basis of a nipple shadow.
--- NOTE | 2019-04-18 11:40 | P.DS ---
Providers Date of admission: 04/15/19 12:24 Expected date of discharge: 04/18/19 Attending physician: Julissa Tomlin MD Consults: 04/12/19 08:37 Consult Physician Stat Consulting Provider: Cortney Bowser Consult Reason/Comments: possible seizure, altered mental status Do you want consulting provider notified?: Yes Consult Physician Stat Consulting Provider: Doreen Hadley Consult Reason/Comments: dialysis Do you want consulting provider notified?: Yes Primary care physician: Physician Nonstaff Hospital Course: Discharge diagnosis Acute metabolic encephalopathy End-stage renal disease on hemodialysis Acute bronchitis Essential hypertension Pulmonary nodule 69-year-old male with hx of HTN, ESRD, hx of recent enterococcus bacteremia about 6 months ago presented to the hospital due to altered mental status. Patient was driving to the dialysis unit and did not feel well and therefore drove back home. Per family, he was not acting himself. When he was seen in the ER he was alert and oriented. He denied chest pain or shortness of breath. He denied any vision changes, focal weakness or numbness. No syncopal episodes. no fevers or chills. No cough. No nausea, vomiting or diarrhea. Patient did sustain a fall at home on Monday.Evaluation in the emergency department was essentially negative. Hemodynamically he was stable. Labs were all benign and computed tomography scan of the head. Chest x-ray was not suggestive of fluid overload. Last hemodialysis was on Monday. Patient was dialyzed during his hospitalizations. He was seen by nephrology service.Subsequently he was admitted to the hospital for neuro checks and neurology consultation. He was seen by neurology who recommended EEG and MRI of the brain, both were negative for acute events. EEG showed generalized slowing consistent with a metabolic encephalopathy. He also had blood cx that was negative. It was thought his encephalopathy was uremic secondary to his end-stage renal disease. During the hospitalization patient did not have any recurrent episodes of confusion. Today his mental status is essentially normal, he will be discharged home in a stable condition. This is her process took approximately 35 minutes Focused exam Cardiovascular: Regular rate and rhythm no murmurs rubs or gallops Patient Condition at Discharge: Good Plan - Discharge Summary Discharge Rx Participant: No New Discharge Prescriptions: Continue Tamsulosin HCl [Flomax] 0.4 mg PO DAILY Omeprazole 20 mg PO DAILY Carvedilol 25 mg PO BID hydrALAZINE HCL [Apresoline] 100 mg PO TID Discharge Medication List Carvedilol 25 mg PO BID 11/15/18 [History] Omeprazole 20 mg PO DAILY 11/15/18 [History] Tamsulosin HCl [Flomax] 0.4 mg PO DAILY 11/15/18 [History] hydrALAZINE HCL [Apresoline] 100 mg PO TID 04/12/19 [History] Follow up Appointment(s)/Referral(s): Miguel Tadeo MD [STAFF PHYSICIAN] - 05/03/19 10:15 am Nonstaff,Physician [Primary Care Provider] - 1-2 days Patient Instructions/Handouts: Acute Kidney Injury (DC), Nonepileptic Seizures (DC), Altered Mental Status (GEN) Activity/Diet/Wound Care/Special Instructions: Follow up with neurology in 2-3 weeks Discharge Disposition: TRANSFER TO SNF/ECF
[2019-04-18] MEDS ORDERED: AZITHROMYCIN 500 MG TAB PO ONE (12:00)
[2019-04-18 16:42] LABS: Glucose,Whole Blood 173 mg/dL (75-99)
--- NOTE | 2019-04-18 17:53 | PN ---
PROGRESS NOTE Patient was seen this morning for followup for end-stage renal disease. He is awaiting placement. Patient will be dialyzed today prior to discharge. Labs were ordered this morning and potassium came back at 6.9. PHYSICAL EXAMINATION: On examination this morning, blood pressure was 165/73, heart rate 64 per minute. Patient is afebrile. EXAMINATION OF THE HEART: S1 and S2. EXAMINATION OF LUNGS: Bilateral breath sounds are heard. ABDOMEN: Soft, non-tender. Examination of lower extremities shows no evidence of edema. MUD MILL TENDER exam is grossly intact. LABS: Sodium 131, potassium 6.9, chloride 95. CO2 is 18. BUN 93, creatinine. 10.6.ASSESSMENT: 1. End-stage renal disease, on hemodialysis on a Monday, Monday, Monday schedule as outpatient. Patient will be dialyzed today and then he will be dialyzed tomorrow on his regular outpatient schedule. 2. Hyperkalemia associated with end-stage renal disease. Expect improvement post dialysis. Patient is advised to avoid high potassium containing foods as well as constipation. 3. Chronic kidney disease mineral bone disorder. 4. Hypertension, controlled. PLAN: Hemodialysis today and then again in a.m. on regular outpatient schedule. MMODL / IJN: [id number] /
[2019-04-18 20:12] LABS: Glucose,Whole Blood 133 mg/dL (75-99)
[2019-04-19 07:01] LABS: Glucose,Whole Blood 148 mg/dL (75-99)
[2019-04-19] MEDS: CARVEDILOL 12.5 MG TAB PO SCH (08:50)
[2019-04-19] MEDS: PANTOPRAZOLE 40 MG TABLET PO SCH (08:51)
[2019-04-19] MEDS: hydrALAZINE HCL 50 MG TAB PO SCH (08:51)
[2019-04-19] MEDS: TAMSULOSIN 0.4 MG CAP.ER.24H PO SCH (08:51)
[2019-04-19] MEDS ORDERED: AZITHROMYCIN 250 MG TAB PO SCH (09:00)
--- NOTE | 2019-04-19 09:54 | P.PN ---
Subjective Progress Note Date: 04/18/19 Patient seen and examined wanting to go home today. He had today's labs are worse serum sodium 131 potassium 6.9 creatinine 10.6. Objective - Vital Signs Vital signs: Vital Signs Temp 97.7 F 04/18/19 14:38 Pulse 59 L 04/18/19 14:38 Resp 15 04/18/19 14:38 BP 156/72 04/18/19 14:38 Pulse Ox 97 04/18/19 14:38 Intake & Output 04/17/19 04/18/19 04/18/19 18:59 06:59 18:59 Intake Total 800 400 260 Balance 800 400 260 Intake: Oral 800 400 260 Other: Voiding Method Toilet # Voids 1 0 - Exam Constitutional: No acute distress, conversant, pleasant Eyes: Anicteric sclerae, moist conjunctiva, no lid-lag, PERRLA ENMT: NC/AT,Oropharynx clear, no erythema, exudates Neck:Supple, FROM, no masses, or JVD, No carotid bruits; No thyromegaly Lungs: Clear to auscultation, Clear to percussion, Normal respiratory effort, no accessory muscle use Cardiovascular: Heart regular in rate and rhythm, No murmurs, gallops, or rubs no peripheral edema Abdominal: Soft Nontender, nom distended, no guarding, no rebound or rigidity, Normoactive bowel sounds No hepatomegaly, No splenomegaly, No palpable mass No abdominal wall hernia noted Skin: Normal temperature, tone, texture, turgor, No induration No subcutaneous nodules, No rash, lesions, No ulcers Extremities:No digital cyanosis No clubbing, Pedal pulses intact and symmetrical Radial pulses intact and symmetrical Normal gait and station, No calf tenderness Psychiatric: Alert and awake, oriented at times Neuro: Muscles Strength 5/5 in all 4 extremities, Sensation to light touch grossly present throughout, Cranial nerves II-XII grossly intact. No focal sensory deficits - Labs CBC & Chem 7: 04/13/19 07:01 04/18/19 09:43 Labs: Abnormal Lab Results - Last 24 Hours (Table) 04/18/19 04/18/19 04/18/19 Range/Units 07:07 09:43 11:06 Sodium 131 L (137-145) mmol/L Potassium 6.9 H* (3.5-5.1) mmol/L Chloride 95 L (98-107) mmol/L Carbon Dioxide 18 L (22-30) mmol/L BUN 93 H (9-20) mg/dL Creatinine 10.60 H* (0.66-1.25) mg/dL Glucose 182 H (74-99) mg/dL POC Glucose (mg/dL) 152 H 176 H (75-99) mg/dL Microbiology - Last 24 Hours (Table) 04/12/19 15:38 Blood Culture - Preliminary Blood No Growth after 120 hours Assessment and Plan Assessment: Acute metabolic encephalopathy with hyperkalemia * secondary to uremic encephalopathy from missed hemodialysis * Neurology consulted, EEG showed generalized slowing consistent with metabolic encephalopathy, MRI brain done as well and that was negative for acute intracranial process. * Blood culture negative * Patient's social environment likely contributing to this, we'll contact Adult Protective Services for evaluation ESRD: * Nephrology consult * Patient will be dialyzed today Essential hypertension * Blood pressure elevated continue home antihypertensives. Disposition: Anticipated discharge tomorrow
--- NOTE | 2019-04-19 11:09 | PN ---
PROGRESS NOTE Patient is seen for followup for end-stage renal disease. He is currently being dialyzed. The patient denies any significant complaints. There is plan for discharge today post dialysis. PHYSICAL EXAMINATION: On examination, blood pressure is 168/67, heart rate 69 per minute. He is afebrile. EXAMINATION OF THE HEART: S1, S2. EXAMINATION OF THE LUNGS: Bilateral breath sounds are heard. ABDOMEN: Soft, nontender. Examination of lower extremities shows no evidence of edema. LABS: Labs are not available from today. Potassium was 6.9 yesterday. ASSESSMENT: 1. End-stage renal disease on hemodialysis on a Monday, Monday, Monday schedule, status post dialysis yesterday and today. Next treatment will be as outpatient on Monday. 2. Hyperkalemia, status post dialysis yesterday. Currently being dialyzed again. 3. Hypertension, with fair control. 4. Mental status changes on initial admission, now improved. 5. Chronic kidney disease mineral bone disorder. PLAN: Okay for discharge post dialysis today. MMODL / IJN: [id number] /
[2019-04-19 11:40] LABS: Glucose,Whole Blood 128 mg/dL (75-99)
[2019-04-19 11:56] VITALS: BP 150/87; PULSE 70; RESP 18; TEMP 98
== END 2019-04-19 13:09 | DRG 70 ==
LOC: EC 05:37 → 5NMEDONC 08:52 → 4SSUR 14:01 → OBSVTOIN 04-15 12:24
PROVIDERS: ADMIT Internal Medicine; ATTEND Internal Medicine
PROC: 5A1D70Z Performance of Urinary Filtration, Intermittent, Less than 6 Hours Per Day (ICD-10-PCS; principal; 2019-04-12)
DX: G93.49 Other encephalopathy (principal); N18.6 End stage renal disease; I12.0 Hypertensive chronic kidney disease with stage 5 chronic kidney disease or end stage renal disease; E87.5 Hyperkalemia; D63.1 Anemia in chronic kidney disease; E83.9 Disorder of mineral metabolism, unspecified; E11.22 Type 2 diabetes mellitus with diabetic chronic kidney disease; J20.9 Acute bronchitis, unspecified; I25.10 Atherosclerotic heart disease of native coronary artery without angina pectoris; I25.2 Old myocardial infarction; R91.1 Solitary pulmonary nodule; R41.3 Other amnesia; Z79.899 Other long term (current) drug therapy; Z99.2 Dependence on renal dialysis; Z87.891 Personal history of nicotine dependence; Z95.5 Presence of coronary angioplasty implant and graft; Z86.19 Personal history of other infectious and parasitic diseases; Z98.890 Other specified postprocedural states; W19.XXXA Unspecified fall, initial encounter; Y92.009 Unspecified place in unspecified non-institutional (private) residence as the place of occurrence of the external cause; Z83.3 Family history of diabetes mellitus; Z82.49 Family history of ischemic heart disease and other diseases of the circulatory system; Z83.49 Family history of other endocrine, nutritional and metabolic diseases
CPT/HCPCS: 36415; 70450; 70551; 71046; 80048; 80053; 83735; 84100; 85025; 87040; 90935; 93005; 95816; 99285